=== PATIENT | male | born 1960 | race Caucasian/White ===

== ENCOUNTER 2020-03-19 16:48 | Inpatient (IN) | payer MEDICAID, SELFPAY ==
[2020-03-19] VITALS (8 sets, daily range): BP systolic 99–149; BP diastolic 58–84; PULSE 71–97; RESP 11–20; TEMP 36.9–37.7; O2SAT 97–99; BMI 22.1
--- NOTE | 2020-03-19 17:05 | PC.NURSE ---
dr son at bedside, this rn chaperoned rectal exam, no active bleeding from the rectum at this time. pt tolerated the procedure well skin slightly pale, respirations even and unlabored, ns on the monitor
--- NOTE | 2020-03-19 17:17 | ED_ITS ---
HPI - General Adult General Chief complaint: General Medical Stated complaint: hemorrhoids Time Seen by Provider: 03/19/20 16:55 Source: patient Mode of arrival: ambulatory Limitations: no limitations History of Present Illness HPI narrative: Patient comes to the emergency room complaining of rectal bleeding. Patient states he has been bleeding for about 3 weeks per rectum. Patient states he has no rectal pain, no abdominal pain, no vomiting blood. Patient states he has history of hemorrhoids that required surgery. Patient states he came because he has history of bleeding significantly to the point that he needs blood transfusion. Patient states that for the last week he has been using adult diapers especially at nights because at that time the rectal bleeding is more diffuse. Patient noticed that in the last 2 days he has been feeling mildly short of breath with exertion. Of note, patient was admitted in 2017 for similar issue with rectal bleeding. Patient had a colonoscopy done which showed venous abnormalities in varices. Patient did not require surgery at that time. Patient states in the last 3 years he has been intermittently bleeding but it usually self resolves, however this time it has been 3 weeks and the bleeding keeps getting worse. Patient denies any diarrhea. Patient has h istory of alcohol abuse. Patient states that he was sober for 4 years, however due to social issues, he has been drinking occasionally beer for the last 4 months. Patient states his last drink was yesterday. Patient denies being on blood thinners MD complaint: Rectal bleeding Related Data Home Medications Medication Instructions Recorded Confirmed No Known Home Meds 03/19/20 03/19/20 Allergies Allergy/AdvReac Type Severity Reaction Status Date / Time No Known Allergies Allergy Verified 03/19/20 19:39 [No Known Allergies*] Review of Systems Review of Systems: Constitutional : No Weight loss, No Fever, No Chills, No Night Sweats, No Fatigue, No Malaise ENT/Mouth : No Hearing loss, No Ear Pain, No Nasal Congestion, No Sinus Pain, No Hoarseness, No sore throat, No Rhinorrhea, No Swallowing Difficulty Eyes: No Eye Pain, No Swelling, No Redness, No Foreign Body, No Discharge, No Vision Changes Cardiovascular : No Chest Pain, No SOB, No Dyspnea on Exertion, No Orthopnea, No Edema, No Palpitations Respiratory : No Cough, No Sputum, No Wheezing, No Smoke Exposure, recently noticed dyspnea with exertion Gastrointestinal : No Nausea, No Vomiting, No Diarrhea, No Constipation, No abdominal Pain, complaining of rectal bleeding Genitourinary : no irregular bleeding, No Dysuria, No Urinary Frequency, No Hematuria, No Urinary Incontinence, No Urgency, No Flank Pain, No Urinary Flow Changes, No Hesitancy Musculoskeletal : No joint pain, No Myalgias, No Joint Swelling Skin : No Skin Lesions, No rash Neuro : No Weakness, No Numbness, No Paresthesias, No Loss of Consciousness, No Dizziness, No Headache Psych : No Anxiety/Panic, No Depression, No SI/HI/AH/VH, No Social Issues, Heme/Lymph: No Bruising, No Bleeding,No Lymphadenopathy Endocrine : No Polyuria, No Polydipsia, No Temperature Intolerance [facility] Past Medical History Medical History (Updated 03/19/20 @ 19:51 by Qian De Los Santos MD) Acute hemorrhoid Alcohol abuse GI bleed Surgical History (Updated 03/19/20 @ 17:22 by Qian De Los Santos MD) H/O hemorrhoidectomy Hx of hernia repair Hx of total knee replacement Social History Social History Alcohol intake: current Alcohol intake frequency: 3 or more drinks per day Alcohol type: beer Smoking Status: Never smoker Use of substances other than those prescribed or required for medical reasons: Yes Substance Use Type: Marijuana Substance Use Frequency: Daily Advance Directives: No Advance Directives Information Provided: Yes Physical Exam Vital Signs: Vital Signs: Last Vital Signs Temp 98.7 F 03/19/20 19:37 Pulse 81 03/19/20 19:37 Resp 18 03/19/20 19:37 BP 118/67 03/19/20 19:37 Pulse Ox 97 03/19/20 19:37 Body Mass Index 22.1 Appearance: Alert. Oriented X3. No acute distress. Eyes: Pupils equal, round and reactive to light. ENT: Pharynx normal. Neck: Normal inspection. Neck supple. No lymph nodes noted. No crepitus CVS: Normal heart rate and rhythm. Pulses normal. Normal S1 and S2 Respiratory: No respiratory distress. Breath sounds normal. No Wheezing. No rales Abdomen: Soft and nontender. No rigidity. No distention. good BS x4, no obvious external hemorrhoids, questionable internal hemorrhoids, bright red blood on digital rectal exam Skin: Skin warm and dry. Normal skin color. Normal skin turgor. Extremities: No lower extremity edema. No lower extremity edema. No Lacerations. No Rash Neuro: Oriented X 3. No motor deficit. No sensory deficit. Moving all extermi ties. No slurred speech. Course Course Course Narrative: Patient remains stable, I discussed the patient with the hospitalist, given that the patient has a hemoglobin of 8 point and is symptomatic will go ahead and transfuse him with 1 unit of blood initially. Otherwise, patient is stable, at this time patient does not have active bleeding. Plan is for the patient to get admitted, tomorrow surgery and GI will be consulted. Medical Decision Making Lab Data Result diagrams: 03/19/20 17:23 03/19/20 17:23 Labs: Lab Results 03/19/20 03/19/20 03/19/20 Range/Units 17:23 17:23 17:23 WBC 4.4 L (4.8-10.8) X10*3/uL RBC 2.46 L (4.60-5.80) X10*6/uL Hgb 8.0 L (14.0-18.0) g/dl Hct 24.2 L (42-52) % MCV 98.4 H (80-98) fL MCH 32.5 (27.0-33.0) pg MCHC 33.1 (31.0-36.0) g/dl RDW 12.6 (11.0-16.0) % Plt Count 250 (160-400) X10*3/uL MPV 9.1 L (9.4-12.4) fL Immature Gran % (Auto) 0.7 H (0.0-0.4) % Neut % (Auto) 58.6 (45-73) % Lymph % (Auto) 26.7 (20-40) % [place] % (Auto) 11.5 H (2-11) % Eos % (Auto) 1.8 (0-4) % Baso % (Auto) 0.7 (0-2) % Lymph # (Auto) 1.2 (1.2-4.9) X10*3/uL [place] # (Auto) 0.5 (0.1-1.2) X10*3/uL Eos # (Auto) 0.1 (0.0-0.4) X10*3/uL Baso # (Auto) 0.0 (0.0-0.2) X10*3/uL Abs Immat Gran (auto) 0.03 (0.00-0.03) X10*3/uL Absolute Neuts (auto) 2.6 (2.0-8.3) X10*3/uL Absolute Nucleated RBC 0.000 (0.0-0.012) X10*3/uL Nucleated RBC % (auto) 0.0 (0.0-0.2) /100WBC PT 10.3 L (10.8-13.0) SEC INR 0.9 (0.9-1.1) Sodium 136 (135-145) mmol/L Potassium 4.6 (3.3-5.1) mmol/l Chloride 104 (96-108) mmol/L Carbon Dioxide 23 (22-29) mmol/L Anion Gap 14 (12-20) BUN 16 (9-16) mg/dL Creatinine 0.82 (0.5-1.4) mg/dL Estim Creat Clear Calc 92.1 Estimated GFR > 60 Random Glucose 86 (60-115) mg/dL Calcium 8.4 (8.4-10.2) mg/dL Total Bilirubin 0.3 (0.0-1.0) mg/dL Direct Bilirubin < 0.2 (0.0-0.5) mg/dL AST 24 (5-37) U/L ALT 12 (0-40) U/L Alkaline Phosphatase 45 (39-117) U/L Total Protein 5.6 L (6.5-8.0) g/dL Albumin 3.6 (3.5-5.0) g/dL Ethyl Alcohol mg/dL Blood Type Antibody Screen Antibody Identification Crossmatch 03/19/20 03/19/20 Range/Units 17:23 18:09 WBC (4.8-10.8) X10*3/uL RBC (4.60-5.80) X10*6/uL Hgb (14.0-18.0) g/dl Hct (42-52) % MCV (80-98) fL MCH (27.0-33.0) pg MCHC (31.0-36.0) g/dl RDW (11.0-16.0) % Plt Count (160-400) X10*3/uL MPV (9.4-12.4) fL Immature Gran % (Auto) (0.0-0.4) % Neut % (Auto) (45-73) % Lymph % (Auto) (20-40) % [place] % (Auto) (2-11) % Eos % (Auto) (0-4) % Baso % (Auto) (0-2) % Lymph # (Auto) (1.2-4.9) X10*3/uL [place] # (Auto) (0.1-1.2) X10*3/uL Eos # (Auto) (0.0-0.4) X10*3/uL Baso # (Auto) (0.0-0.2) X10*3/uL Abs Immat Gran (auto) (0.00-0.03) X10*3/uL Absolute Neuts (auto) (2.0-8.3) X10*3/uL Absolute Nucleated RBC (0.0-0.012) X10*3/uL Nucleated RBC % (auto) (0.0-0.2) /100WBC PT (10.8-13.0) SEC INR (0.9-1.1) Sodium (135-145) mmol/L Potassium (3.3-5.1) mmol/l Chloride (96-108) mmol/L Carbon Dioxide (22-29) mmol/L Anion Gap (12-20) BUN (9-16) mg/dL Creatinine (0.5-1.4) mg/dL Estim Creat Clear Calc Estimated GFR Random Glucose (60-115) mg/dL Calcium (8.4-10.2) mg/dL Total Bilirubin (0.0-1.0) mg/dL Direct Bilirubin (0.0-0.5) mg/dL AST (5-37) U/L ALT (0-40) U/L Alkaline Phosphatase (39-117) U/L Total Protein (6.5-8.0) g/dL Albumin (3.5-5.0) g/dL Ethyl Alcohol 11 mg/dL Blood Type A Positive Antibody Screen POSITIVE Antibody Identification Anti-K Crossmatch See Detail Critical Care Time Critical Care Time Total Critical Care Time: 50 Discharge Plan Discharge Clinical Impression: GI bleed, Anemia Patient Disposition: Admitted As Inpatient Prescriptions: No Action No Known Home Meds RF: 0
[2020-03-19 17:31] LABS: Basophils Percent Auto 0.7 % (0-2); Eosinophils Absolute Auto 0.1 X10*3/uL (0.0-0.4); Eosinophils Percent Auto 1.8 % (0-4); Hematocrit 24.2 % (42-52); Imm Gran Abs Auto 0.03 X10*3/uL (0.00-0.03); Imm Gran Pct Auto 0.7 % (0.0-0.4); Lymphocytes Absolute Auto 1.2 X10*3/uL (1.2-4.9); Lymphocytes Percent Auto 26.7 % (20-40); MANUAL DIFF FLAG NO; Mean Corpuscular HGB Conc 33.1 g/dl (31.0-36.0); Mean Corpuscular Hemoglobin 32.5 pg (27.0-33.0); Mean Corpuscular Volume 98.4 fL (80-98); Mean Platelet Volume 9.1 fL (9.4-12.4); Monocytes Absolute Auto 0.5 X10*3/uL (0.1-1.2); Monocytes Percent Auto 11.5 % (2-11); Neutrophils Absolute Auto 2.6 X10*3/uL (2.0-8.3); Neutrophils Percent Auto 58.6 % (45-73); Platelet Count 250 X10*3/uL (160-400); Red Blood Count 2.46 X10*6/uL (4.60-5.80); Red Cell Distribution Width 12.6 % (11.0-16.0); White Blood Count 4.4 X10*3/uL (4.8-10.8)
[2020-03-19 17:37] LABS: INTERNATIONAL NORM RATIO 0.9 (0.9-1.1); Prothrombin Time 10.3 SEC (10.8-13.0)
[2020-03-19 17:52] LABS: Alanine Aminotransferase 12 U/L (0-40); Albumin Level 3.6 g/dL (3.5-5.0); Alkaline Phosphatase 45 U/L (39-117); Anion Gap 14 (12-20); Aspartate Amino Transferase 24 U/L (5-37); Bilirubin Direct < 0.2 mg/dL (0.0-0.5); Bilirubin Total 0.3 mg/dL (0.0-1.0); Blood Urea Nitrogen 16 mg/dL (9-16); Calcium 8.4 mg/dL (8.4-10.2); Carbon Dioxide 23 mmol/L (22-29); Chloride 104 mmol/L (96-108); Creatinine Clr Calc Pharmacy 92.1; Estimated Glomerular Filt Rate > 60; Glucose Random 86 mg/dL (60-115); Potassium 4.6 mmol/l (3.3-5.1); Sodium 136 mmol/L (135-145); Total Protein 5.6 g/dL (6.5-8.0)
[2020-03-19 17:55] LABS: Ethanol 11 mg/dL
--- NOTE | 2020-03-19 19:40 | PC.NURSE ---
Plan for admission to hospital. Hospitalist at bedside for evaluation. medication review completed. Patient is 2 receive 2 units of rbc's.
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
--- NOTE | 2020-03-19 19:55 | PC.NURSE ---
FLOOR CALLED TO GIVE REPORT BUT PATIENT
--- NOTE | 2020-03-19 20:10 | PC.NURSE ---
PATIENT BEING TRANSFUSED 1 UNIT A POSITVE RBC.
--- NOTE | 2020-03-19 21:21 | PC.NURSE ---
First unit of blood transfused and no reactions noted. Patient vss given.
[2020-03-20] VITALS (10 sets, daily range): BP systolic 97–126; BP diastolic 53–76; PULSE 56–90; RESP 16–19; TEMP 36.1–37.5; O2SAT 95–100
--- NOTE | 2020-03-20 | US_ITS ---
EXAMINATION: US SCROTUM CLINICAL INFORMATION: Testicular mass. COMPARISON: None TECHNIQUE: A sonogram of the scrotum was performed assessing castillo-scale appearance and color Doppler flow. Spectral Doppler analysis of the arterial and venous flow were performed in the testes bilaterally. FINDINGS: RIGHT: Right testicle measures 4.5 x 2.5 x 2.5 cm, volume 15 mL. No focal testicular parenchymal lesions are visualized. Spectral Doppler analysis of the arterial and venous flow is normal in the right testis. Right epididymal head is normal in size. The tail of the right epididymis is not well visualized. No right hydrocele or varicocele is seen. Right epididymal Doppler flow is LEFT: Left testicle measures 3.7 x 2.6 x 2.6 cm, volume 13 mL. No focal testicular parenchymal lesions are visualized. Spectral Doppler analysis of the arterial and venous flow is normal in the left testis. The left epididymis is not well visualized. There may be a small appendix testis. There is a large loculated left hydrocele. This contains multiple septations. No varicocele is seen. US/US scrotum IMPRESSION: Large loculated left hydrocele. The left epididymis and tail of the right epididymis are not well visualized. Normal-appearing testicles.
[2020-03-20 00:05] LABS: Glucose Urine UA NEG (NEG); Leukocyte Esterase Urine NEG (NEG); Nitrite Urine NEG (NEG); Specific Gravity - Urine 1.015 (1.005-1.025); Urine Blood NEG (NEG); Urine Ketones NEG (NEG); Urine Protein NEG (NEG-TRACE)
[2020-03-20 00:16] LABS: Appearance Urine CLEAR; Color Urine YELLOW
[2020-03-20] MEDS: 0.9 % Sodium Chloride 1,000 ML 100 ML IVCONT ×4 (00:42→23:50)
[2020-03-20 05:12] LABS: Basophils Percent Auto 0.6 % (0-2); Eosinophils Absolute Auto 0.1 X10*3/uL (0.0-0.4); Hemoglobin 8.5 g/dl (14.0-18.0); Lymphocytes Percent Auto 15.6 % (20-40); MANUAL DIFF FLAG SCAN; PLT CLUMP 1; SCAN SMEAR FLAG 1
[2020-03-20 05:14] LABS: Eosinophils Percent Auto 1.7 % (0-4); Hematocrit 26.3 % (42-52); Imm Gran Abs Auto 0.01 X10*3/uL (0.00-0.03); Imm Gran Pct Auto 0.2 % (0.0-0.4); Lymphocytes Absolute Auto 0.8 X10*3/uL (1.2-4.9); Mean Corpuscular HGB Conc 32.3 g/dl (31.0-36.0); Mean Corpuscular Hemoglobin 31.4 pg (27.0-33.0); Mean Platelet Volume 9.1 fL (9.4-12.4); Monocytes Absolute Auto 0.4 X10*3/uL (0.1-1.2); Monocytes Percent Auto 8.5 % (2-11); Neutrophils Absolute Auto 3.5 X10*3/uL (2.0-8.3); Neutrophils Percent Auto 73.4 % (45-73); Platelet Count 211 X10*3/uL (160-400); Red Blood Count 2.71 X10*6/uL (4.60-5.80); Red Cell Distribution Width 13.3 % (11.0-16.0); White Blood Count 4.8 X10*3/uL (4.8-10.8)
[2020-03-20 05:41] LABS: Anion Gap 8 (12-20); Blood Urea Nitrogen 16 mg/dL (9-16); Calcium 7.8 mg/dL (8.4-10.2); Carbon Dioxide 28 mmol/L (22-29); Chloride 106 mmol/L (96-108); Creatinine Clr Calc Pharmacy 103.5; Estimated Glomerular Filt Rate > 60; Glucose Random 92 mg/dL (60-115); Potassium 4.3 mmol/l (3.3-5.1); Sodium 138 mmol/L (135-145)
[2020-03-20 05:44] LABS: SLIDE REVIEW VERIFIED
--- NOTE | 2020-03-20 08:41 | P.CDIC_ITS ---
[facility] Concurrent Query Service Date: 03/20/20 Documentation Clarification: Please clarify if you are treating a proba ble/suspected/likely or confirmed: Acute blood loss anemia Please specify if known or other Provider Response: Acute Blood Loss Anemia PLEASE DO NOT DELETE/MODIFY EXISTING CONTENT Additional information is needed in order to code to the highest accuracy and appropriate Severity of Illness (SOI). Please clarify the information noted b elow in your progress notes and discharge summary. Risk Factors/Clinical Indicators/Treatments GI bleed, History of GI bleed in the past, now with shortness of breath, unable to move around without getting SOB w exertion and feeling weak. Bleeding most likely 2nd to his h/o rectosigmoid varices. Given his symptomatic anemia will give 1 unit PRBC. HGB 8.0 8.5 HCT 24.2 26.3 Follow H and H CDS: Francheska Khan CCS, [facility] Contact Number: [phone] Please Review the information above and exercise your independent professional judgment in responding to the query. If you concur, pleas document in the PROGRESS NOTES and DISCHARGE SUMMARY. If you do not agree with the query, please document in the query above. THIS QUERY IS PART OF THE PERMANENT MEDICAL RECORD
--- NOTE | 2020-03-20 09:48 | MHC.CM.PN ---
CM attempted to see pt this morning who is off unit for imaging. CM to revisit
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
--- NOTE | 2020-03-20 13:29 | P.PNIM_ITS ---
Subjective Subjective Date of Service: 03/20/20 Interval History: the patient was seen and evaluated this morning Laying in bed, feels comfortable Denies any fever, chills or shortness of breath reports having 2 bloody bowel motions overnight No reported other overnight events. Systemic review: No fever, chills But reports generalized weakness No chest pain, palpitation on exertion shortness of breath but no coughing No abdominal pain, nausea or vomiting No urinary symptoms No any rash or wounds Physical Exam Vital Signs: Vital Signs: Last Vital Signs Temp 98.0 F 03/20/20 10:58 Pulse 68 03/20/20 10:58 Resp 18 03/20/20 10:58 BP 110/68 03/20/20 10:58 Pulse Ox 98 03/20/20 10:58 Body Mass Index 22.1 Constitutional : Alert, oriented, not in distress Neck : Normal inspection, Supple Cardiovascular : RRR, S1 S2, no lower extremity edema Respiratory : Good bilateral air entry, no crackles, wheezes or rhonchi Gastrointestinal: soft, lax, Normal bowel sounds, Non tender Skin : Warm/Dry, No rash, large left-sided scrotal mass, not tender Neurological : Alert & oriented x3, No focal deficit Objective Data Current Medications Generic Name Dose Route Start Last Admin Trade Name Freq PRN Reason Stop Dose Admin Acetaminophen 650 mg 03/19/20 22:42 Acetaminophen 325 Mg Tablet PO Q6H PRN Pain, Mild (Pain Scale 1-3) Sodium Chloride 1,000 mls @ 100 mls/hr 03/19/20 22:42 03/20/20 13:26 Ns IVCONT 0 mls/hr .Q10H BON Infusion Ondansetron HCl 4 mg 03/19/20 22:42 Ondansetron Hcl 4 Mg/2 Ml Vial IVPUSH Q8H PRN Nausea and Vomiting Sodium Chloride 3 ml 03/20/20 00:00 03/20/20 08:28 0.9 % Sodium Chloride Flush 3 Ml Syringe IVFLUSH Not Given QSHIFT [facility] Labs CBC & Chem 7: 03/20/20 04:46 03/20/20 04:46 Assessment and Plan (1) GI bleed: Status: Acute (2) Anemia: Status: Acute (3) Mass of left testicle: Status: Acute (4) History of hemorrhoids: Status: Acute (5) Rectal varices: Status: Acute (6) Acute on chronic blood loss anemia: Status: Acute (7) Symptomatic anemia: Status: Acute Assessment and Plan: this is a 59-year-old male with past medical history as mentioned above who presents to the hospital with GI bleed. acute on chronic blood loss anemia Symptomatic anemia Secondary to GI bleed likely result of of rectosigmoid varices bleeding hemoglobin improved to 8.3 post transfusion To give another unit of blood GI bleed GI input appreciated, planned colonoscopy Monday Start diet for now Monitor H and H Left scrotal mass Ultrasound showing but seems to be calcified hydrocele pending consult urology History of rectal varices and hemorrhoids status post hemorrhoidectomy in his 20s last GI bleed due to rectosigmoid varices in 2017 DVT prophylaxis SCDs
--- NOTE | 2020-03-20 16:45 | PC.NURSE ---
1 unit PRBC completed. No s/sx of reaction. Denies CP, SOB. Lungs clear throughout. Pt refusing SCDs at this time.
[2020-03-20 18:29] LABS: Hematocrit 29.7 % (42-52); Hemoglobin 9.6 g/dl (14.0-18.0); Mean Corpuscular HGB Conc 32.3 g/dl (31.0-36.0); Mean Corpuscular Hemoglobin 31.3 pg (27.0-33.0); Mean Corpuscular Volume 96.7 fL (80-98); Mean Platelet Volume 9.5 fL (9.4-12.4); Platelet Count 194 X10*3/uL (160-400); Red Blood Count 3.07 X10*6/uL (4.60-5.80); Red Cell Distribution Width 13.9 % (11.0-16.0); White Blood Count 3.6 X10*3/uL (4.8-10.8)
[2020-03-20] MEDS: Gabapentin 600 MG TABLET PO (20:50)
[2020-03-21 03:32] VITALS: BP 113/80; PULSE 64; RESP 18; TEMP 36.6; O2SAT 100
[2020-03-21 07:04] LABS: Hematocrit 28.7 % (42-52); Hemoglobin 9.5 g/dl (14.0-18.0); Mean Corpuscular HGB Conc 33.1 g/dl (31.0-36.0); Mean Corpuscular Hemoglobin 31.9 pg (27.0-33.0); Mean Corpuscular Volume 96.3 fL (80-98); Mean Platelet Volume 9.5 fL (9.4-12.4); Platelet Count 178 X10*3/uL (160-400); Red Blood Count 2.98 X10*6/uL (4.60-5.80); Red Cell Distribution Width 14.1 % (11.0-16.0); White Blood Count 3.5 X10*3/uL (4.8-10.8)
[2020-03-21 07:12] VITALS: BP 116/74; PULSE 60; RESP 18; TEMP 37; O2SAT 99
[2020-03-21 07:23] LABS: Anion Gap 7 (12-20); Blood Urea Nitrogen 16 mg/dL (9-16); Calcium 7.8 mg/dL (8.4-10.2); Carbon Dioxide 26 mmol/L (22-29); Chloride 110 mmol/L (96-108); Creatinine Clr Calc Pharmacy 111.1; Estimated Glomerular Filt Rate > 60; Glucose Random 96 mg/dL (60-115); Potassium 4.4 mmol/l (3.3-5.1); Sodium 139 mmol/L (135-145)
[2020-03-21] MEDS: Gabapentin 600 MG TABLET PO ×3 (07:52→20:53)
[2020-03-21] MEDS: 0.9 % Sodium Chloride 1,000 ML 100 ML IVCONT ×2 (10:01→20:53)
[2020-03-21 11:08] VITALS: BP 122/75; PULSE 69; RESP 18; TEMP 36.9; O2SAT 98
--- NOTE | 2020-03-21 12:57 | P.PNIM_ITS ---
Subjective Subjective Date of Service: 03/21/20 Interval History: the patient was seen and evaluated this morning Laying in bed, feels comfortable Denies any fever, chills or shortness of breath reports having bloody bowel motions overnight No reported other overnight events. Systemic review: No fever, chills But reports generalized weakness No chest pain, palpitation on exertion shortness of breath but no coughing No abdominal pain, nausea or vomiting But reports bloody bowel motions No urinary symptoms No any rash or wounds Physical Exam Vital Signs: Vital Signs: Last Vital Signs Temp 98.4 F 03/21/20 11:08 Pulse 69 03/21/20 11:08 Resp 18 03/21/20 11:08 BP 122/75 03/21/20 11:08 Pulse Ox 98 03/21/20 11:08 Body Mass Index 22.1 Constitutional : Alert, oriented, not in distress Neck : Normal inspection, Supple Cardiovascular : RRR, S1 S2, no lower extremity edema Respiratory : Good bilateral air entry, no crackles, wheezes or rhonchi Gastrointestinal: soft, lax, Normal bowel sounds, Non tender Skin : Warm/Dry, No rash Neurological : Alert & oriented x3, No focal deficit Objective Data Current Medications Generic Name Dose Route Start Last Admin Trade Name Freq PRN Reason Stop Dose Admin Acetaminophen 650 mg 03/19/20 22:42 Acetaminophen 325 Mg Tablet PO Q6H PRN Pain, Mild (Pain Scale 1-3) Gabapentin 600 mg 03/20/20 21:00 03/21/20 07:52 Gabapentin 600 Mg Tablet PO 600 mg TID BON Administration Sodium Chloride 1,000 mls @ 100 mls/hr 03/19/20 22:42 03/21/20 10:01 Ns IVCONT 100 mls/hr .Q10H BON Administration Ondansetron HCl 4 mg 03/19/20 22:42 Ondansetron Hcl 4 Mg/2 Ml Vial IVPUSH Q8H PRN Nausea and Vomiting Sodium Chloride 3 ml 03/20/20 00:00 03/21/20 07:52 0.9 % Sodium Chloride Flush 3 Ml Syringe IVFLUSH Not Given QSHIFT [facility] Labs CBC & Chem 7: 03/21/20 06:27 03/21/20 06:27 Assessment and Plan (1) GI bleed: Status: Acute (2) Anemia: Status: Acute (3) Mass of left testicle: Status: Acute (4) History of hemorrhoids: Status: Acute (5) Rectal varices: Status: Acute (6) Acute on chronic blood loss anemia: Status: Acute (7) Symptomatic anemia: Status: Acute Assessment and Plan: this is a 59-year-old male with past medical history as mentioned above who presents to the hospital with GI bleed. acute on chronic blood loss anemia Symptomatic anemia Secondary to GI bleed likely result of of rectosigmoid varices bleeding Plan for colonoscopy Monday morning Change diet to clear liquids tomorrow morning To start bowel preparation tomorrow GI bleed GI input appreciated, planned colonoscopy Monday hemoglobin stable around 9.2 after 2 units transfusion Start diet for now Monitor H and H Left scrotal mass Ultrasound showing but seems to be loculated hydrocele pending consult urology History of rectal varices and hemorrhoids status post hemorrhoidectomy in his 20s last GI bleed due to rectosigmoid vari americo in 2017 DVT prophylaxis SCDs
--- NOTE | 2020-03-21 14:20 | P.CNUR_ITS ---
History of Present Illness Consult details Consult date: 03/21/20 Narrative: 59-year-old male. Admitted with history of GI bleed and rectosigmoid varices. Prior known high alcohol consumption. Currently at lower level. Has been living in [facility] drinking every 2 or 3 days. This episode started in early February with progressive worsening bloody watery bowel motions. On admission noted to have enlarged left testicle. Ultrasound shows complex hydrocele Discussed with patient He would like intervention We discussed coming to the office for evaluation and he could be added for surgery. At this point in time he is still being treated for his anemia and bleeding varices. Review of Systems Review of Systems: Yes all other systems are reviewed and are negative PMFSH Past Medical History Medical History (Updated 03/21/20 @ 14:20 by Filipe Mcclendon MD) Acute hemorrhoid Alcohol abuse GI bleed Surgical History Surgical History (Updated 03/19/20 @ 17:22 by Qian De Los Santos MD) H/O hemorrhoidectomy Hx of hernia repair Hx of total knee replacement Social History Social History Household Members: None Housing: Homeless Housing Other:: lived in a [facility], now homeless at this time Do you presently have visiting nurse or other home services: No Alcohol intake: current Alcohol intake frequency: 3 or more drinks per day Alcohol type: beer Smoking Status: Never smoker Use of substances other than those prescribed or required for medical reasons: No Substance Use Type: Marijuana Substance Use Frequency: Daily Currently Displaying Signs/Symptoms of Drug Intoxication Withdrawal: No Have you been hit, kicked, punched, or otherwise hurt by someone within the past year? If so, by whom?: No Do you feel safe in your current relationship?: No Current Relationship Is there a partner from a previous relationship who is making you feel unsafe now?: No Are you made to feel afraid or neglected: No Advance Directives: No Advance Directives Information Provided: Yes Do you have thoughts of harming others: None Do you have a plan to hurt others: No Plan Recently lost weight without trying: No Meds Allergies Allergy/AdvReac Type Severity Reaction Status Date / Time No Known Allergies Allergy Verified 03/19/20 19:39 [No Known Allergies*] Home Medications Medication Instructions Recorded Confirmed Type gabapentin 600 mg PO TID 03/20/20 03/20/20 History naproxen sodium 550 mg PO BID 03/20/20 03/20/20 History Physical Exam Vital Signs: Vital Signs: Last Vital Signs Temp 98.4 F 03/21/20 11:08 Pulse 69 03/21/20 11:08 Resp 18 03/21/20 11:08 BP 122/75 03/21/20 11:08 Pulse Ox 98 03/21/20 11:08 Body Mass Index 22.1 Const: General: cooperative, healthy appearing, comfortable and no acute distress Nutritional Appearance: average body habitus Orientation/consciousness: oriented to person, oriented to place and oriented to time Eyes: General: appearance normal, both eyes and all related structures Chest: Chest palpation & inspection: normal inspection of the chest Resp: Effort & Inspection: normal respiratory effort Cardio: Rate: regular rate GI: Inspection: Yes normal to inspection : Penis: normal penis Meatus: meatus normal Scrotum: Hydrocele present on the left Skin: Hair: normal Neuro: General: oriented to person, oriented to place and oriented to time Extrem: General: Yes normal to inspection Results Labs Result diagrams: 03/21/20 06:27 03/21/20 06:27 Labs: Abnormal lab results 03/19/20 03/20/20 03/21/20 Range/Units 18:09 17:33 06:27 WBC 3.6 L 3.5 L (4.8-10.8) X10*3/uL RBC 3.07 L 2.98 L (4.60-5.80) X10*6/uL Hgb 9.6 L 9.5 L (14.0-18.0) g/dl Hct 29.7 L 28.7 L (42-52) % Chloride (96-108) mmol/L Anion Gap (12-20) Calcium (8.4-10.2) mg/dL Crossmatch See Detail Crossmatch (AHG) See Detail 03/21/20 Range/Units 06:27 WBC (4.8-10.8) X10*3/uL RBC (4.60-5.80) X10*6/uL Hgb (14.0-18.0) g/dl Hct (42-52) % Chloride 110 H (96-108) mmol/L Anion Gap 7 L (12-20) Calcium 7.8 L (8.4-10.2) mg/dL Crossmatch Crossmatch (AHG) Short CBC 03/20/20 03/21/20 Range/Units 17:33 06:27 WBC 3.6 L 3.5 L (4.8-10.8) X10*3/uL Hgb 9.6 L 9.5 L (14.0-18.0) g/dl Hct 29.7 L 28.7 L (42-52) % Plt Count 194 178 (160-400) X10*3/uL BMP 03/21/20 06:27 Sodium 139 Potassium 4.4 Chloride 110 H Carbon Dioxide 26 BUN 16 Creatinine 0.68 Calcium 7.8 L Urine 03/19/20 Range/Units 23:27 Urine Color YELLOW Urine Appearance CLEAR Urine pH 7.0 (5.0-8.0) Ur Specific [place] 1.015 (1.005-1.025) Urine Protein NEG (NEG-TRACE) MG/DL Urine Glucose (UA) NEG (NEG) MG/DL All other labs normal. Assessment and Plan (1) Hydrocele in adult: Status: Acute Left large complex hydrocele If still in hospital Monday could be added on for hydrocelectomy
--- NOTE | 2020-03-21 15:30 | PM.GIPN ---
Subjective Subjective Date of Service: 03/21/20 Interval History: tolerating diet still with blood in bms Physical Exam Vital Signs: Vital Signs: Last Vital Signs Temp 98.4 F 03/21/20 11:08 Pulse 69 03/21/20 11:08 Resp 18 03/21/20 11:08 BP 122/75 03/21/20 11:08 Pulse Ox 98 03/21/20 11:08 Body Mass Index 22.1 Const: General: cooperative Resp: Other: lungs clear Cardio: Other: normal s1 s2 GI: Other: soft, nontender bowel sounds normal Extrem: Other: without edema Objective Data Labs CBC & Chem 7: 03/21/20 06:27 03/21/20 06:27 Progress Note: A&P Assessment and plan (1) GI bleed: Status: Acute Assessment and Plan: [id number] monitor hct Time Spent With Patient Time: Total time spent is greater than 50% in coordination of care (as documented) at patient's floor/unit and/or counseling patient: Time with patient: 15 - 24 minutes
--- NOTE | 2020-03-21 15:55 | MHC.CM.PN ---
CM MET WITH PT WHO REPORTS HE HAS BEEN LIVING [place] [address] OF [place] FOR THE PAST TWO MONTHS. PT REPORTS HE HAS A RV BUT ALL OF THE CAMP GROUNDS ARE CLOSED. HE REPORTS HE HAS BEEN UNABLE TO WORK SINCE A KNEE REPLACEMENT THAT HE FEELS WAS BOTCHED. HE REPORTS HIS PCP IS WORKING ON GETTING A SECOND SURGERY AUTHORIZED TO CORRECT IT. 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 PT REPORTS HE HAS NOT DRANK IN 4 YEARS AND FEELS STAYING BUSY IS GARDINER TO HIS RECOVERY. PT REPORTS SOME CONCERNS ABOUT RETURNING TO THE STREET UPON DISCHARGE. CM WILL CHECK HIS INSURANCE FOR GROUP HOME BENEFITS. CURRENTLY DC PLAN IS TBD PENDING PTS BENEFITS ARE CARE PLAN
[2020-03-21 16:00] VITALS: BP 115/73; PULSE 62; RESP 18; TEMP 36.9; O2SAT 100
--- NOTE | 2020-03-21 18:02 | PC.NURSE ---
Pt a&o x4, able to make needs known. Pt has some c.o pain in his rectum but refuses pain medication. Pt aware of plan for colonoscopy for 03/23/20.
[2020-03-21 19:03] VITALS: BP 140/80; PULSE 66; RESP 16; TEMP 36.8; O2SAT 99
[2020-03-21 23:21] VITALS: BP 102/66; PULSE 60; RESP 18; TEMP 36.6; O2SAT 98
[2020-03-22 04:00] VITALS: BP 101/56; PULSE 52; RESP 18; TEMP 36.7; O2SAT 100
[2020-03-22] MEDS: 0.9 % Sodium Chloride 1,000 ML 100 ML IVCONT ×2 (05:28→15:37)
[2020-03-22 07:13] LABS: Hematocrit 29.4 % (42-52); Hemoglobin 9.4 g/dl (14.0-18.0); Mean Corpuscular Hemoglobin 30.7 pg (27.0-33.0); Mean Corpuscular Volume 96.1 fL (80-98); Mean Platelet Volume 9.5 fL (9.4-12.4); Platelet Count 182 X10*3/uL (160-400); Red Blood Count 3.06 X10*6/uL (4.60-5.80); Red Cell Distribution Width 13.6 % (11.0-16.0); White Blood Count 4.4 X10*3/uL (4.8-10.8)
[2020-03-22 07:50] LABS: Anion Gap 8 (12-20); Blood Urea Nitrogen 13 mg/dL (9-16); Calcium 7.7 mg/dL (8.4-10.2); Carbon Dioxide 26 mmol/L (22-29); Chloride 110 mmol/L (96-108); Creatinine Clr Calc Pharmacy 116.3; Estimated Glomerular Filt Rate > 60; Glucose Random 94 mg/dL (60-115); Potassium 4.3 mmol/l (3.3-5.1); Sodium 140 mmol/L (135-145)
[2020-03-22 08:00] VITALS: BP 111/73; PULSE 66; RESP 20; TEMP 36.6; O2SAT 97
[2020-03-22] MEDS: Gabapentin 600 MG TABLET PO ×3 (08:38→20:51)
[2020-03-22 12:00] VITALS: BP 105/76; PULSE 59; RESP 20; TEMP 36.9; O2SAT 99
--- NOTE | 2020-03-22 12:36 | PM.GIPN ---
Subjective Subjective Date of Service: 03/22/20 Interval History: reports rectal bleeding no abd pain Physical Exam Vital Signs: Vital Signs: Last Vital Signs Temp 98.5 F 03/22/20 12:00 Pulse 59 03/22/20 12:00 Resp 20 03/22/20 12:00 BP 105/76 03/22/20 12:00 Pulse Ox 99 03/22/20 12:00 Body Mass Index 22.1 Const: General: cooperative and comfortable Resp: Auscultation: clear to auscultation bilaterally Cardio: Rate: regular rate Rhythm: regular rhythm Heart sounds: S1 normal heart sound present and S2 normal heart sound present Extrem: General: Yes no clubbing, cyanosis or edema Objective Data Labs CBC & Chem 7: 03/22/20 06:40 03/22/20 06:40 Progress Note: A&P Assessment and plan (1) GI bleed: Status: Acute Assessment and Plan: rectal bleeding is stable bowel prep today colonoscopy tomorrow Time Spent With Patient Time: Total time spent is greater than 50% in coordination of care (as documented) at patient's floor/unit and/or counseling patient: Time with patient: less than 15 minutes
--- NOTE | 2020-03-22 12:55 | HO.PM.IMPN ---
Subjective Subjective Date of Service: 03/22/20 Interval History: the patient was seen and evaluated this morning Laying in bed, feels comfortable Denies any fever, chills or shortness of breath reports having bloody bowel motions overnight No reported other overnight events. Systemic review: No fever, chills But reports generalized weakness No chest pain, palpitation on exertion shortness of breath but no coughing No abdominal pain, nausea or vomiting But reports bloody bowel motions No urinary symptoms No any rash or wounds Physical Exam Vital Signs: Vital Signs: Last Vital Signs Temp 98.5 F 03/22/20 12:00 Pulse 59 03/22/20 12:00 Resp 20 03/22/20 12:00 BP 105/76 03/22/20 12:00 Pulse Ox 99 03/22/20 12:00 Body Mass Index 22.1 Constitutional : Alert, oriented, not in distress Neck : Normal inspection, Supple Cardiovascular : RRR, S1 S2, no lower extremity edema Respiratory : Good bilateral air entry, no crackles, wheezes or rhonchi Gastrointestinal: soft, lax, Normal bowel sounds, Non tender Skin : Warm/Dry, No rash Neurological : Alert & oriented x3, No focal deficit Objective Data Current Medications Generic Name Dose Route Start Last Admin Trade Name Freq PRN Reason Stop Dose Admin Acetaminophen 650 mg 03/19/20 22:42 Acetaminophen 325 Mg Tablet PO Q6H PRN Pain, Mild (Pain Scale 1-3) Gabapentin 600 mg 03/20/20 21:00 03/22/20 08:38 Gabapentin 600 Mg Tablet PO 600 mg TID BON Administration Sodium Chloride 1,000 mls @ 100 mls/hr 03/19/20 22:42 03/22/20 05:28 Ns IVCONT 100 mls/hr .Q10H BON Administration Ondansetron HCl 4 mg 03/19/20 22:42 Ondansetron Hcl 4 Mg/2 Ml Vial IVPUSH Q8H PRN Nausea and Vomiting Sodium Chloride 3 ml 03/20/20 00:00 03/22/20 08:36 0.9 % Sodium Chloride Flush 3 Ml Syringe IVFLUSH Not Given QSHIFT [facility] Labs CBC & Chem 7: 03/22/20 06:40 03/22/20 06:40 Assessment and Plan (1) GI bleed: Status: Acute (2) Anemia: Status: Acute (3) Mass of left testicle: Status: Acute (4) History of hemorrhoids: Status: Acute (5) Rectal varices: Status: Acute (6) Acute on chronic blood loss anemia: Status: Acute (7) Symptomatic anemia: Status: Acute Assessment and Plan: this is a 59-year-old male with past medical history as mentioned above who presents to the hospital with GI bleed. acute on chronic blood loss anemia Symptomatic anemia Secondary to GI bleed likely result of of rectosigmoid varices bleeding Plan for colonoscopy Tomorrow Start bowel preparation today Change diet to clear liquids tomorrow morning NPO post midnight GI bleed GI input appreciated, planned colonoscopy Monday hemoglobin stable around 9.3 after 2 units transfusion Start diet for now Monitor H and H Left scrotal mass Ultrasound showing but seems to be loculated hydrocele Urology input appreciated, consider surgery during the hospital stay History of rectal varices and hemorrhoids status post hemorrhoidectomy in his 20s last GI bleed due to rectosigmoid varices in 2017 DVT prophylaxis SCDs
[2020-03-22] MEDS: PEG 3350/Na Sulf,Bicarb,Cl/KCL 4,000 ML SOLN.RECON 4000 ML PO (14:55)
[2020-03-22 14:59] VITALS: BP 106/74; PULSE 56; RESP 20; TEMP 36.6; O2SAT 99
[2020-03-22] MEDS: Acetaminophen 325 MG TABLET 650 MG PO (15:42)
--- NOTE | 2020-03-22 18:08 | PC.NURSE ---
Pt was angry in the morning due to mix up in computer and tray being sent up late. Told pt that it wasn't the kichen's fault and that it was a mix up in the computer. Pt calmed down shortly after. Pt began bowel prep for colonoscopy 03/23/20. Bedside commode brought into room. Pt still have some stool in BM, pt knows what to look for when doing bowel prep since he has done it before. Told pt to notify nurse of progression of bowel prep.
[2020-03-22] MEDS: ondansetron HCL 4 MG/2 ML VIAL IVPUSH (19:24)
[2020-03-22 20:00] VITALS: BP 107/75; PULSE 57; RESP 16; TEMP 36.7; O2SAT 99
[2020-03-22 23:10] VITALS: BP 111/72; PULSE 59; RESP 16; TEMP 36.6; O2SAT 99
[2020-03-23] VITALS (8 sets, daily range): BP systolic 99–135; BP diastolic 55–90; PULSE 55–89; RESP 14–20; TEMP 36.5–36.8; O2SAT 93–100
[2020-03-23] MEDS: 0.9 % Sodium Chloride Flush 3 ML SYRINGE IVFLUSH ×3 (01:18→16:25)
[2020-03-23 06:28] LABS: Hematocrit 28.6 % (42-52); Hemoglobin 9.2 g/dl (14.0-18.0); Mean Corpuscular HGB Conc 32.2 g/dl (31.0-36.0); Mean Corpuscular Hemoglobin 31.1 pg (27.0-33.0); Mean Corpuscular Volume 96.6 fL (80-98); Mean Platelet Volume 9.4 fL (9.4-12.4); Platelet Count 201 X10*3/uL (160-400); Red Blood Count 2.96 X10*6/uL (4.60-5.80); Red Cell Distribution Width 13.7 % (11.0-16.0); White Blood Count 3.8 X10*3/uL (4.8-10.8)
[2020-03-23] MEDS: Gabapentin 600 MG TABLET PO ×3 (07:57→19:30)
[2020-03-23] MEDS: Acetaminophen 325 MG TABLET 650 MG PO ×2 (07:58→19:29)
--- NOTE | 2020-03-23 09:36 | MHC.SHP ---
Pre-Procedural Eval Section A The patient is an INPATIENT: Yes The History & Physical has been completed within 30 days and I have reviewed it.: Yes Section B Chief Complaint: GI BLeed, symptomatic anemia Allergies: Allergies Allergy/AdvReac Type Severity Reaction Status Date / Time No Known Allergies Allergy Verified 03/19/20 19:39 [No Known Allergies*] Plan Patient has been examined and remains a candidate for the planned procedure
[2020-03-23] MEDS: Lactated Ringers 1,000 ML 50 ML IVCONT ×2 (12:50→18:03)
--- NOTE | 2020-03-23 13:09 | PC.NURSE ---
NAV FERGUSON RN REGARDING PATIENTS OUTDATED BLOOD BANK BAND. NEW TYPE AND SCREEN ORDER PUT INTO COMPUTER. CALLED LAB FOR A REDRAW.
--- NOTE | 2020-03-23 13:21 | PC.NURSE ---
patient being drawn for type and screen.
--- NOTE | 2020-03-23 13:27 | PC.NURSE ---
rebanded with new type and screen to right wrist.
--- NOTE | 2020-03-23 13:42 | HO.ANESPROP2 ---
HPI - Anesthesia Eval Consult details Narrative: p/f colonoscopy d/t rectal bleeding [facility] Past Medical History Medical History Acute hemorrhoid Alcohol abuse GI bleed Surgical History Surgical History H/O hemorrhoidectomy Hx of hernia repair Hx of total knee replacement Social History Social History Household Members: None Housing: Homeless Housing Other:: lived in a [place] trailer, now homeless at this time Do you presently have visiting nurse or other home services: No Alcohol intake: current Alcohol intake frequency: 3 or more drinks per day Alcohol type: beer Smoking Status: Never smoker Use of substances other than those prescribed or required for medical reasons: Yes Substance Use Type: Marijuana Substance Use Frequency: Daily Currently Displaying Signs/Symptoms of Drug Intoxication Withdrawal: No Have you been hit, kicked, punched, or otherwise hurt by someone within the past year? If so, by whom?: No Do you feel safe in your current relationship?: No Current Relationship Is there a partner from a previous relationship who is making you feel unsafe now?: No Are you made to feel afraid or neglected: No Advance Directives: No Advance Directives Information Provided: Yes Do you have thoughts of harming others: None Do you have a plan to hurt others: No Plan Recently lost weight without trying: No service: No Current occupational status: disabled Meds Allergies Allergy/AdvReac Type Severity Reaction Status Date / Time No Known Allergies Allergy Verified 03/19/20 19:39 [No Known Allergies*] Home Medications Medication Instructions Recorded Confirmed Type gabapentin 600 mg PO TID 03/20/20 03/20/20 History naproxen sodium 550 mg PO BID 03/20/20 03/20/20 History Exam Exam Date and Time: March 23, 2020 1342 Height,Weight and Vital Signs: Height 5 ft 9 in Weight 68.039 kg Last Vital Signs Temp 98.1 F 03/23/20 12:42 Pulse 62 03/23/20 12:42 Resp 16 03/23/20 12:42 BP 135/89 03/23/20 12:42 Pulse Ox 99 03/23/20 12:42 Pertinent Lab Results Pertinent Lab Results: Laboratory Tests 03/19/20 03/19/20 03/19/20 17:23 17:23 17:23 WBC 4.4 L RBC 2.46 L Hgb 8.0 L Hct 24.2 L MCV 98.4 H MCH 32.5 MCHC 33.1 RDW 12.6 Plt Count 250 MPV 9.1 L Immature Gran % (Auto) 0.7 H Neut % (Auto) 58.6 Lymph % (Auto) 26.7 [place] % (Auto) 11.5 H Eos % (Auto) 1.8 Baso % (Auto) 0.7 Lymph # (Auto) 1.2 [place] # (Auto) 0.5 Eos # (Auto) 0.1 Baso # (Auto) 0.0 Abs Immat Gran (auto) 0.03 Absolute Neuts (auto) 2.6 Absolute Nucleated RBC 0.000 Nucleated RBC % (auto) 0.0 Smear Tech's Comments PT 10.3 L INR 0.9 Sodium 136 Potassium 4.6 Chloride 104 Carbon Dioxide 23 Anion Gap 14 BUN 16 Creatinine 0.82 Estim Creat Clear Calc 92.1 Estimated GFR > 60 Random Glucose 86 Calcium 8.4 Total Bilirubin 0.3 Direct Bilirubin < 0.2 AST 24 ALT 12 Alkaline Phosphatase 45 Total Protein 5.6 L Albumin 3.6 Urine Color Urine Appearance Urine pH Ur Specific [place] Urine Protein Urine Glucose (UA) Urine Ketones Urine Blood Urine Nitrite Ur Leukocyte Esterase Ethyl Alcohol Blood Type Antibody Screen Antibody Identification Antigen Identification Crossmatch Crossmatch ([facility]) 03/19/20 03/19/20 03/19/20 17:23 18:09 23:27 WBC RBC Hgb Hct MCV MCH MCHC RDW Plt Count MPV Immature Gran % (Auto) Neut % (Auto) Lymph % (Auto) [place] % (Auto) Eos % (Auto) Baso % (Auto) Lymph # (Auto) [place] # (Auto) Eos # (Auto) Baso # (Auto) Abs Immat Gran (auto) Absolute Neuts (auto) Absolute Nucleated RBC Nucleated RBC % (auto) Smear Tech's Comments PT INR Sodium Potassium Chloride Carbon Dioxide Anion Gap BUN Creatinine Estim Creat Clear Calc Estimated GFR Random Glucose Calcium Total Bilirubin Direct Bilirubin AST ALT Alkaline Phosphatase Total Protein Albumin Urine Color YELLOW Urine Appearance CLEAR Urine pH 7.0 Ur Specific [place] 1.015 Urine Protein NEG Urine Glucose (UA) NEG Urine Ketones NEG Urine Blood NEG Urine Nitrite NEG Ur Leukocyte Esterase NEG Ethyl Alcohol 11 Blood Type A Positive Antibody Screen POSITIVE Antibody Identification Anti-K Antigen Identification K Antigen - NEGATIVE Crossmatch See Detail Crossmatch ([facility]) See Detail 03/20/20 03/20/20 03/20/20 04:46 04:46 17:33 WBC 4.8 3.6 L RBC 2.71 L 3.07 L Hgb 8.5 L 9.6 L Hct 26.3 L 29.7 L MCV 97.0 96.7 MCH 31.4 31.3 MCHC 32.3 32.3 RDW 13.3 13.9 Plt Count 211 194 MPV 9.1 L 9.5 Immature Gran % (Auto) 0.2 Neut % (Auto) 73.4 H Lymph % (Auto) 15.6 L [place] % (Auto) 8.5 Eos % (Auto) 1.7 Baso % (Auto) 0.6 Lymph # (Auto) 0.8 L [place] # (Auto) 0.4 Eos # (Auto) 0.1 Baso # (Auto) 0.0 Abs Immat Gran (auto) 0.01 Absolute Neuts (auto) 3.5 Absolute Nucleated RBC 0.000 0.000 Nucleated RBC % (auto) 0.0 0.0 Smear Tech's Comments VERIFIED PT INR Sodium 138 Potassium 4.3 Chloride 106 Carbon Dioxide 28 Anion Gap 8 L BUN 16 Creatinine 0.73 Estim Creat Clear Calc 103.5 Estimated GFR > 60 Random Glucose 92 Calcium 7.8 L D Total Bilirubin Direct Bilirubin AST ALT Alkaline Phosphatase Total Protein Albumin Urine Color Urine Appearance Urine pH Ur Specific [place] Urine Protein Urine Glucose (UA) Urine Ketones Urine Blood Urine Nitrite Ur Leukocyte Esterase Ethyl Alcohol Blood Type Antibody Screen Antibody Identification Antigen Identification Crossmatch Crossmatch ([facility]) 03/21/20 03/21/20 03/22/20 06:27 06:27 06:40 WBC 3.5 L 4.4 L RBC 2.98 L 3.06 L Hgb 9.5 L 9.4 L Hct 28.7 L 29.4 L MCV 96.3 96.1 MCH 31.9 30.7 MCHC 33.1 32.0 RDW 14.1 13.6 Plt Count 178 182 MPV 9.5 9.5 Immature Gran % (Auto) Neut % (Auto) Lymph % (Auto) [place] % (Auto) Eos % (Auto) Baso % (Auto) Lymph # (Auto) [place] # (Auto) Eos # (Auto) Baso # (Auto) Abs Immat Gran (auto) Absolute Neuts (auto) Absolute Nucleated RBC 0.000 0.000 Nucleated RBC % (auto) 0.0 0.0 Smear Tech's Comments PT INR Sodium 139 Potassium 4.4 Chloride 110 H Carbon Dioxide 26 Anion Gap 7 L BUN 16 Creatinine 0.68 Estim Creat Clear Calc 111.1 Estimated GFR > 60 Random Glucose 96 Calcium 7.8 L Total Bilirubin Direct Bilirubin AST ALT Alkaline Phosphatase Total Protein Albumin Urine Color Urine Appearance Urine pH Ur Specific [place] Urine Protein Urine Glucose (UA) Urine Ketones Urine Blood Urine Nitrite Ur Leukocyte Esterase Ethyl Alcohol Blood Type Antibody Screen Antibody Identification Antigen Identification Crossmatch Crossmatch ([facility]) 03/22/20 03/23/20 03/23/20 06:40 05:43 13:26 WBC 3.8 L RBC 2.96 L Hgb 9.2 L Hct 28.6 L MCV 96.6 MCH 31.1 MCHC 32.2 RDW 13.7 Plt Count 201 MPV 9.4 Immature Gran % (Auto) Neut % (Auto) Lymph % (Auto) [place] % (Auto) Eos % (Auto) Baso % (Auto) Lymph # (Auto) [place] # (Auto) Eos # (Auto) Baso # (Auto) Abs Immat Gran (auto) Absolute Neuts (auto) Absolute Nucleated RBC 0.000 Nucleated RBC % (auto) 0.0 Smear Tech's Comments PT INR Sodium 140 Potassium 4.3 Chloride 110 H Carbon Dioxide 26 Anion Gap 8 L BUN 13 Creatinine 0.65 Estim Creat Clear Calc 116.3 Estimated GFR > 60 Random Glucose 94 Calcium 7.7 L Total Bilirubin Direct Bilirubin AST ALT Alkaline Phosphatase Total Protein Albumin Urine Color Urine Appearance Urine pH Ur Specific [place] Urine Protein Urine Glucose (UA) Urine Ketones Urine Blood Urine Nitrite Ur Leukocyte Esterase Ethyl Alcohol Blood Type A Positive Antibody Screen Antibody Identification Antigen Identification Crossmatch Crossmatch ([facility]) Airway Mallampati Class: I TM Dist: >3cm Neck ROM: Full Loose/Missing/Broken Teeth: No Heart: rrr Lungs: nl Other: ao Assessment and Plan Assessment Anesthesia Assessment: Anesthesia Plan Discussed and Chart Reviewed Final Anesthetic Review NPO: Yes ASA Class: III Final Preanesthetic Review: No Changes in Pt Med Stat, Meds/Allgs Chart Reviewed, Consent Obtained/Reviewed and Anes Risks/Benef Reviewed Procedure Risk: Low Anesthetic Plan Anesthetic Plan: MAC: Disposition: Standard PACU
--- NOTE | 2020-03-23 14:10 | PM.OP ---
Brief Operative Note Date of Service: 03/23/20 Pre-op diagnosis: rectal bleeding Post-op diagnosis: same (rectal venous congestion) Procedure: colonoscopy Surgeon: Chandra Mercado Anesthesia: MAC Estimated blood loss (mL): 20 Pathology: none sent Condition: stable Disposition: PACU
--- NOTE | 2020-03-23 14:14 | PM.EVENT ---
Event Note Date of Service: 03/23/20 Event Note: colonoscopy dictated rectosigmoid venous congestion from 0-25 cm similar to 2017 findings. some oozing, but no focal area of bleeding that could be amenable to endoscopic therapy. rec follow hct consult Dr Bruno
--- NOTE | 2020-03-23 14:38 | P.PNIM_ITS ---
Subjective Subjective Date of Service: 03/23/20 Interval History: Patient seen and examined at bedside, patient still reporting bleeding per rectum Review of Systems Constitutional : No Weight loss, No Fever, No Chills, No Night Sweats, No Fatigue, No Malaise ENT/Mouth : No Hearing loss, No Ear Pain, No Nasal Congestion, No Sinus Pain, No Hoarseness, No sore throat, No Rhinorrhea, No Swallowing Difficulty Eyes: No Eye Pain, No Swelling, No Redness, No Foreign Body, No Discharge, No Vision Changes Cardiovascular : No Chest Pain, No SOB, No Dyspnea on Exertion, No Orthopnea, No Edema, No Palpitations Respiratory : No Cough, No Sputum, No Wheezing, No Smoke Exposure, recently noticed dyspnea with exertion Gastrointestinal : No Nausea, No Vomiting, No Diarrhea, No Constipation, No abdominal Pain, complaining of rectal bleeding Genitourinary : no irregular bleeding, No Dysuria, No Urinary Frequency, No Hematuria, No Urinary Incontinence, No Urgency, No Flank Pain, No Urinary Flow Changes, No Hesitancy Musculoskeletal : No joint pain, No Myalgias, No Joint Swelling Skin : No Skin Lesions, No rash Neuro : No Weakness, No Numbness, No Paresthesias, No Loss of Consciousness, No Dizziness, No Headache Psych : No Anxiety/Panic, No Depression, No SI/HI/AH/VH, No Social Issues, Heme/Lymph: No Bruising, No Bleeding,No Lymphadenopathy Endocrine : No Polyuria, No Polydipsia, No Temperature Intolerance Constitutional Constitutional: Reports weakness Cardiovascular Cardiovascular: Denies dyspnea Respiratory Respiratory: Denies dyspnea Gastrointestinal Gastrointestinal: Reports hematochezia and Denies vomiting Neurologic Neurologic: Reports weakness Physical Exam Vital Signs: Vital Signs: Last Vital Signs Temp 97.9 F 03/23/20 14:03 Pulse 69 03/23/20 14:03 Resp 16 03/23/20 14:03 BP 99/68 03/23/20 14:03 Pulse Ox 99 03/23/20 14:03 Body Mass Index 22.1 Const: General: cooperative and no acute distress Or ientation/consciousness: patient oriented x3 Eyes: General: appearance normal, both eyes and all related structures Pup ils: Equal, round and reactive pupils present Resp: Effort & Inspection: normal respiratory effort and able to speak in complete sentences Auscultation: clear to auscultation bilaterally Cardio: Rate: regular rate Rhythm: regular rhythm GI: Palpation (GI): Soft to palpation Auscultation: normal bowel sounds : Other: multiple large hard masses in the left scrotum, mildly tender Skin: General skin exam: no rashes or lesions noted Neuro: General: patient oriented x3 Cranial nerves: Yes Equal, round and reactive pupils present Cognition (Neuro): normal cognition Extrem: Other: limited range of motion of his left knee presence of surgical scar. General: Yes normal to inspection and Yes no pedal edema Objective Data Current Medications Generic Name Dose Route Start Last Admin Trade Name Freq PRN Reason Stop Dose Admin Acetaminophen 650 mg 03/19/20 22:42 03/23/20 07:58 Acetaminophen 325 Mg Tablet PO 650 mg Q6H PRN Administration Pain, Mild (Pain Scale 1-3) Gabapentin 600 mg 03/20/20 21:00 03/23/20 07:57 Gabapentin 600 Mg Tablet PO 600 mg TID BON Administration Lactated Ringer's 1,000 mls @ 50 mls/hr 03/23/20 13:15 03/23/20 14:32 Lr IVCONT 0 mls/hr .Q20H BON Infusion Ondansetron HCl 4 mg 03/19/20 22:42 03/22/20 19:24 Ondansetron Hcl 4 Mg/2 Ml Vial IVPUSH 4 mg Q8H PRN Administration Nausea and Vomiting Sodium Chloride 3 ml 03/20/20 00:00 03/23/20 07:57 0.9 % Sodium Chloride Flush 3 Ml Syringe IVFLUSH 3 ml QSHIFT BON Administration Labs CBC & Chem 7: 03/23/20 05:43 03/22/20 06:40 Assessment and Plan (1) GI bleed: Status: Acute (2) Anemia: Status: Acute (3) Mass of left testicle: Status: Acute (4) History of hemorrhoids: Status: Acute (5) Rectal varices: Status: Acute (6) Acute on chronic blood loss anemia: Status: Acute (7) Symptomatic anemia: Status: Acute Assessment and Plan: this is a 59-year-old male with past medical history as mentioned above who presents to the hospital with GI bleed. acute on chronic blood loss anemia Symptomatic anemia Secondary to GI bleed likely result of of rectosigmoid varices bleeding Plan for colonoscopy today monitor H&H closely GI bleed GI input appreciated, planned colonoscopy today hemoglobin stable around 9.3 after 2 units transfusion Monitor H and H Left scrotal mass Ultrasound showing but seems to be loculated hydrocele Urology input appreciated, plan for surgery once GI bleed resolved DVT prophylaxis SCDs
--- NOTE | 2020-03-23 16:02 | OP_ITS ---
SURGEON: Chandra Mercado MD INDICATIONS: Rectal bleeding. PREOPERATIVE DIAGNOSIS: POSTOPERATIVE DIAGNOSIS: PROCEDURE PERFORMED: Colonoscopy to the cecum. ESTIMATED BLOOD LOSS: COMPLICATIONS: ANESTHESIA: ASSISTANTS: SPECIMENS: MEDICATIONS: Monitored anesthesia care. DESCRIPTION OF PROCEDURE: History and physical performed. The risks and benefits of the procedure were explained to the patient. Informed consent was obtained. The patient was placed in the left lateral decubitus position. A digital rectal exam was performed and was found to be normal. The Olympus pediatric video colonoscope was introduced into the rectum and advanced to the cecum without difficulty. The cecum was identified by transillumination, palpation, and identification of ileocecal valve. Examination was performed and the scope was removed. He tolerated the procedure well and was taken to recovery area in stable condition. FINDINGS: The terminal ileum was not examined. The visualized colonic mucosa from the cecum to about 20 to 25 cm was normal, where there was an abrupt transition to abnormal mucosa, which showed venous congestion and loss of normal vascular pattern from 0 to 25 cm. There appeared to be probable varicosities in this area. Retroflexed examination showed internal hemorrhoids. The mucosa showed vascular congestion. There was some oozing, but no definite site of bleeding that could be treated endoscopically. Because of the vascular congestion, no biopsies were obtained. IMPRESSION: Rectal and sigmoid venous congestion. Probable rectal varices. RECOMMENDATIONS: 1. Follow H and H. 2. Consult Dr. Bruno. MD KAYLA Peñaloza/QING / [id number] MTDD
--- NOTE | 2020-03-23 16:06 | PC.NURSE ---
Earlier in shift, Pt getting more agitated due to NPO status. Coming out of room, yelling in hallway. Explained to Pt that he would be going for colonoscopy shortly and asked Pt to return to room. Pt yelling in room, seemingly having conversation with himself. Came out of room yelling at staff again, stating If I wasn't bleeding so much, I would take my bags and leave here now! . Security and [employer] Service Advisor called, aware. Security successful in de-escalating Pt. Pt returned from colonoscopy, VSS, still with some bloody stools.
--- NOTE | 2020-03-23 16:41 | PM.CNGS ---
History of Present Illness Consult details Consult date: 03/23/20 Narrative: 59-year-old male referred for rectal bleeding. He describes periodic bleeding from his rectum since 2007. He says the last episode he was here for this was about 3 years ago. However, for the past several days, had been noticing periodic episodes that have been heavy. He says that he notices blood on his pants as well whenever this happens. He had a colonoscopy today showing what appears to be varices/venous ectasia in the rectum all the way to the level 30 cm in the sigmoid. These were losing but not actively bleeding at the time of examination. He says that the bleeding usually happens when he is constipated. He does have a history of all abuse but he says that he had quit about 4 years ago. He had been transfused 2 units of packed RBC for anemia and he was admitted 5 days ago. He was here in the hospital for similar problem in 2017 and a colonoscopy done at that time also showed the same findings of venous ectasia in the rectosigmoid. Review of Systems Constitutional: Constitutional: Reports weakness Cardiovascular: Cardiovascular: Denies chest pain, Denies dyspnea and Denies dyspnea on exertion Respiratory: Respiratory: Denies cough, Denies dyspnea and Denies dyspnea on exertion Gastrointestinal: Gastrointestinal: Reports hematochezia, Denies change in bowel habits and Reports constipation Genitourinary: Genitourinary: Denies hematuria and Denies difficulty urinating Musculoskeletal: Musculoskeletal: Denies back pain and Denies limited range of motion Neurologic: Reports weakness Psychiatric: Psychiatric: Denies depression and Denies mood swings PMFSH Past Medical History Medical History Acute hemorrhoid Alcohol abuse GI bleed Surgical History Surgical History H/O hemorrhoidectomy Hx of hernia repair Hx of total knee replacement Social History Social History Household Members: None Housing: Homeless Housing Other:: lived in a camping trailer, now homeless at this time Do you presently have visiting nurse or other home services: No Alcohol intake: current Alcohol intake frequency: 3 or more drinks per day Alcohol type: beer Smoking Status: Never smoker Use of substances other than those prescribed or required for medical reasons: Yes Substance Use Type: Marijuana Substance Use Frequency: Daily Currently Displaying Signs/Symptoms of Drug Intoxication Withdrawal: No Have you been hit, kicked, punched, or otherwise hurt by someone within the past year? If so, by whom?: No Do you feel safe in your current relationship?: No Current Relationship Is there a partner from a previous relationship who is making you feel unsafe now?: No Are you made to feel afraid or neglected: No Advance Directives: No Advance Directives Information Provided: Yes Do you have thoughts of harming others: None Do you have a plan to hurt others: No Plan Recently lost weight without trying: No service: No Current occupational status: disabled Meds Allergies Allergy/AdvReac Type Severity Reaction Status Date / Time No Known Allergies Allergy Verified 03/19/20 19:39 [No Known Allergies*] Home Medications Medication Instructions Recorded Confirmed Type gabapentin 600 mg PO TID 03/20/20 03/20/20 History naproxen sodium 550 mg PO BID 03/20/20 03/20/20 History Physical Exam Vital Signs: Vital Signs: Last Vital Signs Temp 97.9 F 03/23/20 15:44 Pulse 89 03/23/20 15:44 Resp 19 03/23/20 15:44 BP 129/90 H 03/23/20 15:44 Pulse Ox 99 03/23/20 15:44 Body Mass Index 22.1 Const: General: comfortable and no acute distress Orientation/consciousness: patient oriented x3 Neck: Neck: Yes no lymphadenopathy Resp: Auscultation: clear to auscultation bilaterally Cardio: Rhythm: regular rhythm GI: Other: Rectal exam shows small hemorrhoids, no active bleeding at this time, no tenderness, no other lesions in the anal canal itself Palpation (GI): Soft to palpation, nontender and no guarding Neuro: General: patient oriented x3 Results Labs Result diagrams: 03/23/20 05:43 03/22/20 06:40 Labs: Abnormal lab results 03/19/20 03/23/20 03/23/20 Range/Units 18:09 05:43 13:26 WBC 3.8 L (4.8-10.8) X10*3/uL RBC 2.96 L (4.60-5.80) X10*6/uL Hgb 9.2 L (14.0-18.0) g/dl Hct 28.6 L (42-52) % Crossmatch See Detail Crossmatch ([facility]) See Detail See Detail Short CBC 03/23/20 Range/Units 05:43 WBC 3.8 L (4.8-10.8) X10*3/uL Hgb 9.2 L (14.0-18.0) g/dl Hct 28.6 L (42-52) % Plt Count 201 (160-400) X10*3/uL Urine 03/19/20 Range/Units 23:27 Urine Color YELLOW Urine Appearance CLEAR Urine pH 7.0 (5.0-8.0) Ur Specific [place] 1.015 (1.005-1.025) Urine Protein NEG (NEG-TRACE) MG/DL Urine Glucose (UA) NEG (NEG) MG/DL All other labs normal. Assessment and Plan (1) Rectal varices: Status: Acute He has had colonoscopy today showing findings of venous ectasia diffusely in the rectum all the way to the sigmoid at level 30 cm. Currently, he does not seem to be actively bleeding. I am uncertain if this venous ectasias is related to his history alcohol abuse. He states he has had periodic bleeding 2007. He does describe this as usually happening with constipation. Currently, he does not seem to be actively bleeding, although he states that he had some blood earlier this morning with the bowel prep. His hemoglobin should be followed and this time we can transfuse as needed. He may need to be on stool softeners or at least fiber supplementation at this time. I will need to discuss the findings on colonoscopy in detail with Dr. Mercado. I will follow along while he is in the hospital closely.
--- NOTE | 2020-03-23 19:57 | MHC.PIE ---
Addendum entered by Juan Dee RN 03/23/20 20:34: i; new order debucain tid prn Original Note: p; pt c/o pain to buttocks/rectum asking for preparation H i; dr ballard notified e; will cont to monitor
--- NOTE | 2020-03-24 | CT_ITS ---
EXAMINATION: CT ABDOMEN AND PELVIS WITHOUT AND WITH CONTRAST (GI BLEED) CLINICAL INFORMATION: GI bleed. COMPARISON: CT abdomen and pelvis with contrast 11/10/2016, ultrasound abdomen 11/11/2016 TECHNIQUE: Multiple axial images were obtained through the abdomen and pelvis without and with administration of 85 mL of Omnipaque 350 intravenous contrast. Postcontrast images are obtained during the late arterial phase, portal venous phase, as well as delayed images. No oral contrast. Reformatted images are generated on the CT workstation for the 4 phases and uploaded to PACS. This CT examination was performed using dose optimization techniques as appropriate, variously including the following: *Automated exposure control *Adjustment of mA and/or kV according to patient size (this includes techniques or standardized protocols for targeted exams where dose is matched to indication/reason for exam; i.e. extremities or head) *Use of iterative reconstruction technique DLP: 702 mGy-cm FINDINGS: LUNG BASES: The visualized lung bases are unremarkable. LIVER, GALLBLADDER, AND BILIARY TREE: The liver is normal in size, shape, and attenuation. No focal hepatic lesion or biliary ductal dilatation is present. The gallbladder is unremarkable with no evidence of radiopaque gallstones, gallbladder wall thickening, or obvious pericholecystic inflammatory changes. PANCREAS: Unremarkable. SPLEEN: Unremarkable. ADRENAL GLANDS: Unremarkable. KIDNEYS AND URETERS: The kidneys are normal in size, shape, and attenuation. No hydronephrosis, hydroureter, or calculi seen. No perinephric stranding. BLADDER: Unremarkable. GASTROINTESTINAL TRACT: There is moderate stool throughout the colon. There is no gaseous dilatation of bowel, obstruction, pneumatosis, or free air. There is no active extravasation contrast/bleeding seen in the bowel wall or lumen. No ascites or fluid collection. There is circumferential thickening from the mid sigmoid in continuity through the rectum, similar to prior CT 11/10/2016. No abnormal enhancement. Finding appears chronic. No perirectal stranding. Numerous calcified phleboliths are again present sigmoid and rectum. ABDOMINAL WALL: No significant hernia is appreciated. LYMPH NODES: No lymphadenopathy. VASCULAR: Unremarkable. No abdominal aortic aneurysm. Patent celiac trunk, superior mesenteric artery, and proximal ABDULAZIZ. Innumerable calcified phleboliths throughout the sigmoid and rectum. PELVIC VISCERA: No additional findings. OSSEOUS STRUCTURES: Degenerative changes lumbosacral junction. Scattered Schmorl's nodes upper lumbar spine. CT/CT angio abdomen pelvis IMPRESSION: 1. Chronic circumferential thickening from mid sigmoid in continuity through the rectum, similar to prior CT 11/10/2016. No abnormal enhancement, acute intraluminal hemorrhage, or proximal obstruction. No acute perinephric rectal inflammatory changes, ascites, or fluid collection. 2. If clinically indicated, further assessment for occult GI bleed could be performed with radionuclide bleeding scan.
[2020-03-24 04:00] VITALS: BP 101/67; PULSE 58; RESP 18; TEMP 37; O2SAT 98
--- NOTE | 2020-03-24 06:49 | PM.PNGS ---
Subjective Subjective Date of Service: 03/24/20 Interval history: says he had blood on toilet bowel last night denies abdominal pain overall feels well Physical Exam Vital Signs: Vital Signs: Last Vital Signs Temp 98.6 F 03/24/20 04:00 Pulse 58 03/24/20 04:00 Resp 18 03/24/20 04:00 BP 101/67 03/24/20 04:00 Pulse Ox 98 03/24/20 04:00 Body Mass Index 22.1 Chemistry 03/21/20 03/22/20 06:27 06:40 Sodium 139 140 Potassium 4.4 4.3 Carbon Dioxide 26 26 BUN 16 13 Creatinine 0.68 0.65 Calcium 7.8 L 7.7 L Hematology 03/21/20 03/22/20 03/23/20 06:27 06:40 05:43 WBC 3.5 L 4.4 L 3.8 L Hgb 9.5 L 9.4 L 9.2 L Plt Count 178 182 201 Const: General: comfortable and no acute distress Resp: Effort & Inspection: normal respiratory effort Cardio: Rhythm: regular rhythm GI: Inspection: No distended Palpation (GI): Soft to palpation, nontender, no guarding and not rigid Progress Note: A&P Assessment and plan (1) GI bleed: Status: Acute Assessment and Plan: colonoscopy shows vascular congestion, diffuse, in rectosigmoid follow Hg will discuss with Dr. Mercado re therapeutic measure - steroid enemas? abdomen otherwise benign await path report for biopsies Fall Risk Details Current Medications: Current Medications Generic Name Dose Route Start Last Admin Trade Name Leviq PRN Reason Stop Dose Admin Acetaminophen 650 mg 03/19/20 22:42 03/23/20 19:29 Acetaminophen 325 Mg Tablet PO 650 mg Q6H PRN Administration Pain, Mild (Pain Scale 1-3) Dibucaine 1 appl 03/23/20 20:32 Dibucaine 1 % Oint 28 Gm Tube TOPICAL TID PRN Hemorrhoids Protocol Gabapentin 600 mg 03/20/20 21:00 03/23/20 19:30 Gabapentin 600 Mg Tablet PO 600 mg TID BON Administration Lactated Ringer's 1,000 mls @ 50 mls/hr 03/23/20 13:15 03/23/20 18:03 Lr IVCONT 50 mls/hr .Q20H BON Administration Ondansetron HCl 4 mg 03/19/20 22:42 03/22/20 19:24 Ondansetron Hcl 4 Mg/2 Ml Vial IVPUSH 4 mg Q8H PRN Administration Nausea and Vomiting Sodium Chloride 3 ml 03/20/20 00:00 03/23/20 23:43 0.9 % Sodium Chloride Flush 3 Ml Syringe IVFLUSH Not Given QSHIFT BON Time Spent With Patient Time: Total time spent is greater than 50% in coordination of care (as documented) at patient's floor/unit and/or counseling patient: Time with patient: 15 - 24 minutes
[2020-03-24] MEDS: Gabapentin 600 MG TABLET PO ×3 (07:29→19:57)
[2020-03-24 07:39] VITALS: BP 127/75; PULSE 59; RESP 20; TEMP 36.4; O2SAT 100
[2020-03-24] MEDS: Acetaminophen 325 MG TABLET 650 MG PO ×2 (07:41→14:27)
--- NOTE | 2020-03-24 07:44 | HO.POSTANES ---
Post Anesthesia Evaluation Post Anesthesia Evaluation Vital Signs: Vital Signs Temp Pulse Resp BP Pulse Ox 03/24/20 07:39 97.6 F 59 20 127/75 100 03/24/20 04:00 98.6 F 58 18 101/67 98 03/23/20 23:15 97.7 F 66 20 110/69 100 03/23/20 20:00 98.3 F 70 18 107/65 97 Anesthesia: Monitored Mental Status: Awake Pain Control: Satisfactory Nausea/Vomiting: None Hydration: Adequate Anesthesia-Related Issues: No Anes. Related Issues
[2020-03-24 09:23] LABS: MANUAL DIFF FLAG NO
[2020-03-24 09:25] LABS: Basophils Percent Auto 0.8 % (0-2); Eosinophils Absolute Auto 0.1 X10*3/uL (0.0-0.4); Eosinophils Percent Auto 1.5 % (0-4); Hematocrit 30.2 % (42-52); Hemoglobin 9.9 g/dl (14.0-18.0); Imm Gran Abs Auto 0.01 X10*3/uL (0.00-0.03); Imm Gran Pct Auto 0.3 % (0.0-0.4); Lymphocytes Percent Auto 26.3 % (20-40); Mean Corpuscular HGB Conc 32.8 g/dl (31.0-36.0); Mean Corpuscular Hemoglobin 31.1 pg (27.0-33.0); Mean Platelet Volume 9.5 fL (9.4-12.4); Monocytes Absolute Auto 0.4 X10*3/uL (0.1-1.2); Monocytes Percent Auto 8.9 % (2-11); Neutrophils Absolute Auto 2.4 X10*3/uL (2.0-8.3); Neutrophils Percent Auto 62.2 % (45-73); Platelet Count 250 X10*3/uL (160-400); Red Blood Count 3.18 X10*6/uL (4.60-5.80); Red Cell Distribution Width 13.5 % (11.0-16.0); White Blood Count 3.9 X10*3/uL (4.8-10.8)
[2020-03-24 09:49] LABS: Anion Gap 14 (12-20); Blood Urea Nitrogen 16 mg/dL (9-16); Carbon Dioxide 24 mmol/L (22-29); Chloride 106 mmol/L (96-108); Creatinine Clr Calc Pharmacy 106.4; Estimated Glomerular Filt Rate > 60; Glucose Random 117 mg/dL (60-115); Potassium 4.5 mmol/l (3.3-5.1); Sodium 139 mmol/L (135-145)
[2020-03-24 09:57] LABS: Calcium 8.5 mg/dL (8.4-10.2)
[2020-03-24 11:07] VITALS: BP 109/71; PULSE 64; RESP 18; TEMP 36.9; O2SAT 99
[2020-03-24] MEDS: polyethylene glycoL 3350 17 GM POWD.PACK PO (11:08)
[2020-03-24] MEDS: Lactated Ringers 1,000 ML 50 ML IVCONT ×2 (13:45→20:03)
--- NOTE | 2020-03-24 14:23 | P.PNGI_ITS ---
Subjective Subjective Date of Service: 03/24/20 Interval History: continues with rectal venous bleeding hematocrit remains stable Physical Exam Vital Signs: Vital Signs: Last Vital Signs Temp 98.4 F 03/24/20 11:07 Pulse 64 03/24/20 11:07 Resp 18 03/24/20 11:07 BP 109/71 03/24/20 11:07 Pulse Ox 99 03/24/20 11:07 Body Mass Index 22.1 Const: General: cooperative, alert and awake GI: Inspection: Yes normal to inspection Palpation (GI): Soft to palpation and No hepatosplenomegaly present Extrem: General: Yes no clubbing, cyanosis or edema Objective Data Labs CBC & Chem 7: 03/24/20 08:52 03/24/20 08:52 Progress Note: A&P Assessment and plan (1) GI bleed: Status: Acute Assessment and Plan: discussed findings at colonoscopy with Dr Bruno. vascular surgery consult ordered. consider transfer to tertiary care center for second opinion. Time Spent With Patient Time: Total time spent is greater than 50% in coordination of care (as docume nted) at patient's floor/unit and/or counseling patient: Time with patient: less than 15 minutes
--- NOTE | 2020-03-24 14:47 | PM.EVENT ---
Event Note Date of Service: 03/24/20 Event Note: Full consult to follow. Will order CTA abdomen and pelvis.
--- NOTE | 2020-03-24 14:50 | P.PNIM_ITS ---
Subjective Subjective Date of Service: 03/24/20 Interval History: Patient seen and examined at bedside, patient still reporting bleeding Constitutional Constitutional: Reports weakness Cardiovascular Cardiovascular: Denies dyspnea Respiratory Respiratory: Denies dyspnea Gastrointestinal Gastrointestinal: Reports hematochezia and Denies vomiting Neurologic Neurologic: Reports weakness Physical Exam Vital Signs: Vital Signs: Last Vital Signs Temp 98.4 F 03/24/20 11:07 Pulse 64 03/24/20 11:07 Resp 18 03/24/20 11:07 BP 109/71 03/24/20 11:07 Pulse Ox 99 03/24/20 11:07 Body Mass Index 22.1 Const: General: cooperative and no acute distress Orientation/consciousn ess: patient oriented x3 Eyes: General: appearance normal, both eyes and all related structures Pupils: Equal, round and reactive pupils present Resp: Effort & Inspection: normal respiratory effort and able to speak in complete sentences Auscultation: clear to auscultation bilaterally Cardio: Rate: regular rate Rhythm: regular rhythm GI: Palpation (GI): Soft to palpation Auscultation: normal bowel sounds : Other: multiple large hard masses in the left scrotum, mildly tender Skin: General skin exam: no rashes or lesions noted Neuro: General: patient oriented x3 Cranial nerves: Yes Equal, round and reactive pupils present Cognition (Neuro): normal cognition Extrem: Other: limited range of motion of his left knee presence of surgical scar. General: Yes normal to inspection and Yes no pedal edema Objective Data Current Medications Generic Name Dose Route Start Last Admin Trade Name Freq PRN Reason Stop Dose Admin Acetaminophen 650 mg 03/19/20 22:42 03/24/20 14:27 Acetaminophen 325 Mg Tablet PO 650 mg Q6H PRN Administration Pain, Mild (Pain Scale 1-3) Dibucaine 1 appl 03/23/20 20:32 03/24/20 07:29 Dibucaine 1 % Oint 28 Gm Tube TOPICAL 1 appl TID PRN Administration Hemorrhoids Protocol Gabapentin 600 mg 03/20/20 21:00 03/24/20 14:27 Gabapentin 600 Mg Tablet PO 600 mg TID BON Administration Lactated Ringer's 1,000 mls @ 50 mls/hr 03/23/20 13:15 03/24/20 13:45 Lr IVCONT 50 mls/hr .Q20H BON Administration Ondansetron HCl 4 mg 03/19/20 22:42 03/22/20 19:24 Ondansetron Hcl 4 Mg/2 Ml Vial IVPUSH 4 mg Q8H PRN Administration Nausea and Vomiting Polyethylene Glycol 17 gm 03/24/20 11:00 03/24/20 11:08 Polyethylene Glycol 3350 17 Gm Powd.Pack PO 17 gm DAILY BON Administration Sodium Chloride 3 ml 03/20/20 00:00 03/24/20 14:28 0.9 % Sodium Chloride Flush 3 Ml Syringe IVFLUSH Not Given QSHIFT BON Labs CBC & Chem 7: 03/24/20 08:52 03/24/20 08:52 Assessment and Plan (1) GI bleed: Status: Acute (2) Anemia: Status: Acute (3) Mass of left testicle: Status: Acute (4) History of hemorrhoids: Status: Acute (5) Rectal varices: Status: Acute (6) Acute on chronic blood loss anemia: Status: Acute (7) Symptomatic anemia: Status: Acute Assessment and Plan: this is a 59-year-old male with past medical history as mentioned above who presents to the hospital with GI bleed. Acute on chronic blood loss anemia Symptomatic anemia Secondary to GI bleed received 2 units of PRBCs status post colonoscopy on colonoscopy shows venous congestion of 25 cm with mild oozing patient still has bleeding GI recommended General surgery and vascular surgery opinion monitor H&H closely Left scrotal mass Ultrasound showing but seems to be loculated hydrocele Urology input appreciated, plan for surgery once GI bleed resolved DVT prophylaxis SCDs
[2020-03-24 15:54] VITALS: BP 115/76; PULSE 61; RESP 18; TEMP 36.6; O2SAT 100
[2020-03-24] MEDS: iohexoL 350 MG/ML 100 ML INFUS..BTL 85 ML IV (16:35)
[2020-03-24 19:46] VITALS: BP 105/66; PULSE 60; RESP 18; TEMP 36.8; O2SAT 98
[2020-03-24] MEDS: 0.9 % Sodium Chloride Flush 3 ML SYRINGE IVFLUSH (19:57)
[2020-03-24 23:09] VITALS: BP 86/60; PULSE 61; RESP 18; TEMP 37; O2SAT 98
[2020-03-24] MEDS: 0.9 % Sodium Chloride 1,000 ML 999 ML IVCONT (23:44)
[2020-03-25] VITALS (7 sets, daily range): BP systolic 94–123; BP diastolic 51–80; PULSE 60–72; RESP 18; TEMP 36.4–37; O2SAT 97–100
--- NOTE | 2020-03-25 00:51 | PC.NURSE ---
At 0000 pt BP 86/60 manually. Pt asymptomatic. All other vss. Dr Leandro Bah notified. 1 L NS bolus ordered and administered. BP after bolus 110/55.
[2020-03-25 06:42] LABS: MANUAL DIFF FLAG NO
[2020-03-25 06:49] LABS: Eosinophils Absolute Auto 0.1 X10*3/uL (0.0-0.4); Hematocrit 28.6 % (42-52); Hemoglobin 9.1 g/dl (14.0-18.0); Imm Gran Abs Auto 0.02 X10*3/uL (0.00-0.03); Imm Gran Pct Auto 0.5 % (0.0-0.4); Lymphocytes Absolute Auto 1.2 X10*3/uL (1.2-4.9); Lymphocytes Percent Auto 30.8 % (20-40); Mean Corpuscular HGB Conc 31.8 g/dl (31.0-36.0); Mean Corpuscular Hemoglobin 30.3 pg (27.0-33.0); Mean Corpuscular Volume 95.3 fL (80-98); Mean Platelet Volume 9.8 fL (9.4-12.4); Monocytes Absolute Auto 0.5 X10*3/uL (0.1-1.2); Neutrophils Absolute Auto 2.1 X10*3/uL (2.0-8.3); Neutrophils Percent Auto 53.7 % (45-73); Platelet Count 254 X10*3/uL (160-400); Red Cell Distribution Width 13.2 % (11.0-16.0)
[2020-03-25] MEDS: polyethylene glycoL 3350 17 GM POWD.PACK PO (08:12)
[2020-03-25] MEDS: Gabapentin 600 MG TABLET PO ×3 (08:13→20:28)
[2020-03-25] MEDS: 0.9 % Sodium Chloride Flush 3 ML SYRINGE IVFLUSH ×2 (08:13→20:28)
[2020-03-25] MEDS: Acetaminophen 325 MG TABLET 650 MG PO (08:19)
--- NOTE | 2020-03-25 08:29 | PM.PNGS ---
Subjective Subjective Date of Service: 03/25/20 Interval history: Feels well Denies complaints No episodes of GI bleed overnight Physical Exam Vital Signs: Vital Signs: Last Vital Signs Temp 97.5 F 03/25/20 08:00 Pulse 68 03/25/20 08:00 Resp 18 03/25/20 08:00 BP 106/73 03/25/20 08:00 Pulse Ox 97 03/25/20 08:00 Body Mass Index 22.1 Chemistry 03/24/20 08:52 Sodium 139 Potassium 4.5 Carbon Dioxide 24 BUN 16 Creatinine 0.71 Calcium 8.5 D Hematology 03/23/20 03/24/20 03/25/20 05:43 08:52 05:25 WBC 3.8 L 3.9 L 4.0 L Hgb 9.2 L 9.9 L 9.1 L Plt Count 201 250 254 Const: General: comfortable and no acute distress Cardio: Rate: regular rate Rhythm: regular rhythm GI: Inspection: No distended Palpation (GI): Soft to palpation and nontender Progress Note: A&P Assessment and plan (1) Rectal varices: Status: Acute Assessment and Plan: 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 Periodic bleeding over the years Patient may need resection - with ultra-low anterior resection or APR down the line He says he does not want any stoma however Best to seek opinion with tertiary center - as outpatient ideally Hemoglobin steady Fall Risk Details Current Medications: Current Medications Generic Name Dose Route Start Last Admin Trade Name Freq PRN Reason Stop Dose Admin Acetaminophen 650 mg 03/19/20 22:42 03/25/20 08:19 Acetaminophen 325 Mg Tablet PO 650 mg Q6H PRN Administration Pain, Mild (Pain Scale 1-3) Dibucaine 1 appl 03/23/20 20:32 03/25/20 08:19 Dibucaine 1 % Oint 28 Gm Tube TOPICAL 1 appl TID PRN Administration Hemorrhoids Protocol Gabapentin 600 mg 03/20/20 21:00 03/25/20 08:13 Gabapentin 600 Mg Tablet PO 600 mg TID BON Administration Lactated Ringer's 1,000 mls @ 50 mls/hr 03/23/20 13:15 03/24/20 20:03 Lr IVCONT 50 mls/hr .Q20H BON Administration Ondansetron HCl 4 mg 03/19/20 22:42 03/22/20 19:24 Ondansetron Hcl 4 Mg/2 Ml Vial IVPUSH 4 mg Q8H PRN Administration Nausea and Vomiting Polyethylene Glycol 17 gm 03/24/20 11:00 03/25/20 08:12 Polyethylene Glycol 3350 17 Gm Powd.Pack PO 17 gm DAILY BON Administration Sodium Chloride 3 ml 03/20/20 00:00 03/25/20 08:13 0.9 % Sodium Chloride Flush 3 Ml Syringe IVFLUSH 3 ml QSHIFT BON Administration Time Spent With Patient Time: Total time spent is greater than 50% in coordination of care (as documented) at patient's floor/unit and/or counseling patient: Time with patient: 15 - 24 minutes
--- NOTE | 2020-03-25 10:42 | PM.EVENT ---
Event Note Date of Service: 03/25/20 Event Note: Full consult dictated. CT scan reviewed. No vascular intervention indicated. Continue workup per GI and General surgery.
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
[2020-03-25] MEDS: Lactated Ringers 1,000 ML 50 ML IVCONT (13:15)
--- NOTE | 2020-03-25 15:40 | PM.GIPN ---
Subjective Subjective Date of Service: 03/25/20 Interval History: no abd pain pt reports some rectal bleeding Physical Exam Vital Signs: Vital Signs: Last Vital Signs Temp 97.7 F 03/25/20 15:30 Pulse 71 03/25/20 15:30 Resp 18 03/25/20 15:30 BP 123/80 03/25/20 15:30 Pulse Ox 100 03/25/20 15:30 Body Mass Index 22.1 Const: General: cooperative, comfortable, alert and awake GI: Other: soft, non tender, no masses Psych: Other: short tempered with nursing regarding meals Objective Data Labs CBC & Chem 7: 03/25/20 05:25 03/24/20 08:52 Labs: Laboratory Results - last 24 hr 03/25/20 05:25 WBC 4.0 L RBC 3.00 L Hgb 9.1 L Hct 28.6 L MCV 95.3 MCH 30.3 MCHC 31.8 RDW 13.2 Plt Count 254 MPV 9.8 Immature Gran % (Auto) 0.5 H Neut % (Auto) 53.7 Lymph % (Auto) 30.8 Harris % (Auto) 12.0 H Eos % (Auto) 2.0 Baso % (Auto) 1.0 Lymph # (Auto) 1.2 Harris # (Auto) 0.5 Eos # (Auto) 0.1 Baso # (Auto) 0.0 Abs Immat Gran (auto) 0.02 Absolute Neuts (auto) 2.1 Absolute Nucleated RBC 0.000 Nucleated RBC % (auto) 0.0 Progress Note: A&P Assessment and plan (1) GI bleed: Status: Acute Assessment and Plan: reviewed recommendations of Freddy Bruno and Ruthann agree with these discussed in detail with patient advised him to be respectful in interactions with staff. Fall Risk Details Current Medications: Current Medications Generic Name Dose Route Start Last Admin Trade Name Freq PRN Reason Stop Dose Admin Acetaminophen 650 mg 03/19/20 22:42 03/25/20 08:19 Acetaminophen 325 Mg Tablet PO 650 mg Q6H PRN Administration Pain, Mild (Pain Scale 1-3) Dibucaine 1 appl 03/23/20 20:32 03/25/20 08:19 Dibucaine 1 % Oint 28 Gm Tube TOPICAL 1 appl TID PRN Administration Hemorrhoids Protocol Gabapentin 600 mg 03/20/20 21:00 03/25/20 15:18 Gabapentin 600 Mg Tablet PO 600 mg TID BON Administration Lactated Ringer's 1,000 mls @ 50 mls/hr 03/23/20 13:15 03/25/20 13:15 Lr IVCONT 50 mls/hr .Q20H BON Administration Ondansetron HCl 4 mg 03/19/20 22:42 03/22/20 19:24 Ondansetron Hcl 4 Mg/2 Ml Vial IVPUSH 4 mg Q8H PRN Administration Nausea and Vomiting Polyethylene Glycol 17 gm 03/24/20 11:00 03/25/20 08:12 Polyethylene Glycol 3350 17 Gm Powd.Pack PO 17 gm DAILY BON Administration Sodium Chloride 3 ml 03/20/20 00:00 03/25/20 15:19 0.9 % Sodium Chloride Flush 3 Ml Syringe IVFLUSH Not Given QSHIFT BON Time Spent With Patient Time: Total time spent is greater than 50% in coordination of care (as documented) at patient's floor/unit and/or counseling patient: Time with patient: less than 15 minutes
--- NOTE | 2020-03-25 15:43 | P.PNIM_ITS ---
Subjective Subjective Date of Service: 03/25/20 Interval History: Patient seen and examined at bedside, patient still reporting bleeding Review of Systems Constitutional : No Weight loss, No Fever, No Chills, No Night Sweats, No Fatigue, No Malaise ENT/Mouth : No Hearing loss, No Ear Pain, No Nasal Congestion, No Sinus Pain, No Hoarseness, No sore throat, No Rhinorrhea, No Swallowing Difficulty Eyes: No Eye Pain, No Swelling, No Redness, No Foreign Body, No Discharge, No Vision Changes Cardiovascular : No Chest Pain, No SOB, No Dyspnea on Exertion, No Orthopnea, No Edema, No Palpitations Respiratory : No Cough, No Sputum, No Wheezing, No Smoke Exposure, recently noticed dyspnea with exertion Gastrointestinal : No Nausea, No Vomiting, No Diarrhea, No Constipation, No abdominal Pain, complaining of rectal bleeding Genitourinary : no irregular bleeding, No Dysuria, No Urinary Frequency, No Hematuria, No Urinary Incontinence, No Urgency, No Flank Pain, No Urinary Flow Changes, No Hesitancy Musculoskeletal : No joint pain, No Myalgias, No Joint Swelling Skin : No Skin Lesions, No rash Neuro : No Weakness, No Numbness, No Paresthesias, No Loss of Consciousness, No Dizziness, No Headache Psych : No Anxiety/Panic, No Depression, No SI/HI/AH/VH, No Social Issues, Heme/Lymph: No Bruising, No Bleeding,No Lymphadenopathy Endocrine : No Polyuria, No Polydipsia, No Temperature Intolerance Constitutional Constitutional: Reports weakness Cardiovascular Cardiovascular: Denies dyspnea Respiratory Respiratory: Denies dyspnea Gastrointestinal Gastrointestinal: Reports hematochezia and Denies vomiting Neurologic Neurologic: Reports weakness Physical Exam Vital Signs: Vital Signs: Last Vital Signs Temp 97.7 F 03/25/20 15:30 Pulse 71 03/25/20 15:30 Resp 18 03/25/20 15:30 BP 123/80 03/25/20 15:30 Pulse Ox 100 03/25/20 15:30 Body Mass Index 22.1 Const: General: cooperative and no acute distress Orientation/ consciousness: patient oriented x3 Eyes: General: appearance normal, both eyes and all related structures Pupils: Equal, round and reactive pupils present Resp: Effort & Inspection: normal respiratory effort and able to speak in complete sentences Auscultation: clear to auscultation bilaterally Cardio: Rate: regular rate Rhythm: regular rhythm GI: Palpation (GI): Soft to palpation Auscultation: normal bowel sounds : Other: multiple large hard masses in the left scrotum, mildly tender Skin: General skin exam: no rashes or lesions noted Neuro: General: patient oriented x3 Cranial nerves: Yes Equal, round and reactive pupils present Cognition (Neuro): normal cognition Extrem: Other: limited range of motion of his left knee presence of surgical scar. General: Yes normal to inspection and Yes no pedal edema Objective Data Current Medications Generic Name Dose Route Start Last Admin Trade Name Freq PRN Reason Stop Dose Admin Acetaminophen 650 mg 03/19/20 22:42 03/25/20 08:19 Acetaminophen 325 Mg Tablet PO 650 mg Q6H PRN Administration Pain, Mild (Pain Scale 1-3) Dibucaine 1 appl 03/23/20 20:32 03/25/20 08:19 Dibucaine 1 % Oint 28 Gm Tube TOPICAL 1 appl TID PRN Administration Hemorrhoids Protocol Gabapentin 600 mg 03/20/20 21:00 03/25/20 15:18 Gabapentin 600 Mg Tablet PO 600 mg TID BON Administration Lactated Ringer's 1,000 mls @ 50 mls/hr 03/23/20 13:15 03/25/20 13:15 Lr IVCONT 50 mls/hr .Q20H BON Administration Ondansetron HCl 4 mg 03/19/20 22:42 03/22/20 19:24 Ondansetron Hcl 4 Mg/2 Ml Vial IVPUSH 4 mg Q8H PRN Administration Nausea and Vomiting Polyethylene Glycol 17 gm 03/24/20 11:00 03/25/20 08:12 Polyethylene Glycol 3350 17 Gm Powd.Pack PO 17 gm DAILY BON Administration Sodium Chloride 3 ml 03/20/20 00:00 03/25/20 15:19 0.9 % Sodium Chloride Flush 3 Ml Syringe IVFLUSH Not Given QSHIFT BON Labs CBC & Chem 7: 03/25/20 05:25 03/24/20 08:52 Assessment and Plan (1) GI bleed: Status: Acute (2) Anemia: Status: Acute (3) Mass of left testicle: Status: Acute (4) History of hemorrhoids: Status: Acute (5) Rectal varices: Status: Acute (6) Acute on chronic blood loss anemia: Status: Acute (7) Symptomatic anemia: Status: Acute Assessment and Plan: this is a 59-year-old male with past medical history as mentioned above who presents to the hospital with GI bleed. Acute on chronic blood loss anemia Symptomatic anemia Secondary to GI bleed received 2 units of PRBCs status post colonoscopy on colonoscopy shows venous congestion of 25 cm patient still has bleeding GI recommended General surgery and vascular surgery vascular surgery consult pending monitor H&H closely probably need to transfer to tertiary center Left scrotal mass Ultrasound showing but seems to be loculated hydrocele Urology input appreciated, plan for surgery once GI bleed resolved DVT prophylaxis SCDs
[2020-03-26 03:39] VITALS: BP 105/58; PULSE 59; RESP 18; TEMP 36.6; O2SAT 99
[2020-03-26 06:48] LABS: MANUAL DIFF FLAG NO
[2020-03-26 06:52] LABS: Basophils Percent Auto 0.8 % (0-2); Eosinophils Absolute Auto 0.1 X10*3/uL (0.0-0.4); Eosinophils Percent Auto 1.8 % (0-4); Hematocrit 27.7 % (42-52); Hemoglobin 8.8 g/dl (14.0-18.0); Imm Gran Abs Auto 0.02 X10*3/uL (0.00-0.03); Imm Gran Pct Auto 0.5 % (0.0-0.4); Lymphocytes Absolute Auto 1.3 X10*3/uL (1.2-4.9); Lymphocytes Percent Auto 32.1 % (20-40); Mean Corpuscular HGB Conc 31.8 g/dl (31.0-36.0); Mean Corpuscular Hemoglobin 30.3 pg (27.0-33.0); Mean Corpuscular Volume 95.5 fL (80-98); Mean Platelet Volume 9.6 fL (9.4-12.4); Monocytes Absolute Auto 0.4 X10*3/uL (0.1-1.2); Monocytes Percent Auto 11.1 % (2-11); Neutrophils Absolute Auto 2.1 X10*3/uL (2.0-8.3); Neutrophils Percent Auto 53.7 % (45-73); Platelet Count 225 X10*3/uL (160-400); Red Cell Distribution Width 13.3 % (11.0-16.0); White Blood Count 3.9 X10*3/uL (4.8-10.8)
[2020-03-26 07:44] VITALS: BP 129/57; PULSE 69; RESP 18; TEMP 36.7; O2SAT 100
[2020-03-26] MEDS: Gabapentin 600 MG TABLET PO ×2 (08:13→15:10)
[2020-03-26] MEDS: Lactated Ringers 1,000 ML 50 ML IVCONT (08:16)
[2020-03-26 09:11] LABS: Anion Gap 10 (12-20); Blood Urea Nitrogen 19 mg/dL (9-16); Calcium 8.4 mg/dL (8.4-10.2); Carbon Dioxide 27 mmol/L (22-29); Chloride 108 mmol/L (96-108); Creatinine Clr Calc Pharmacy 105.1; Estimated Glomerular Filt Rate > 60; Glucose Random 89 mg/dL (60-115); Sodium 140 mmol/L (135-145)
--- NOTE | 2020-03-26 09:22 | PM.GIPN ---
Subjective Subjective Date of Service: 03/26/20 Interval History: ate breakfast without difficulty same amount of rectal bleeding per patient Physical Exam Vital Signs: Vital Signs: Last Vital Signs Temp 98.0 F 03/26/20 07:44 Pulse 69 03/26/20 07:44 Resp 18 03/26/20 07:44 BP 129/57 L 03/26/20 07:44 Pulse Ox 100 03/26/20 07:44 Body Mass Index 22.1 Const: General: cooperative, alert and awake Resp: Other: clear Skin: General skin exam: no rashes or lesions noted Extrem: General: Yes no clubbing, cyanosis or edema Objective Data Labs CBC & Chem 7: 03/26/20 05:49 03/26/20 06:00 Labs: Laboratory Results - last 24 hr 03/19/20 03/26/20 03/26/20 18:09 05:49 06:00 WBC 3.9 L RBC 2.90 L Hgb 8.8 L Hct 27.7 L MCV 95.5 MCH 30.3 MCHC 31.8 RDW 13.3 Plt Count 225 MPV 9.6 Immature Gran % (Auto) 0.5 H Neut % (Auto) 53.7 Lymph % (Auto) 32.1 [place] % (Auto) 11.1 H Eos % (Auto) 1.8 Baso % (Auto) 0.8 Lymph # (Auto) 1.3 [place] # (Auto) 0.4 Eos # (Auto) 0.1 Baso # (Auto) 0.0 Abs Immat Gran (auto) 0.02 Absolute Neuts (auto) 2.1 Absolute Nucleated RBC 0.000 Nucleated RBC % (auto) 0.0 Sodium 140 Potassium 5.0 Chloride 108 Carbon Dioxide 27 Anion Gap 10 L BUN 19 H Creatinine 0.71 Estim Creat Clear Calc 105.1 Estimated GFR > 60 Random Glucose 89 Calcium 8.4 Crossmatch See Detail Crossmatch (AHG) See Detail Progress Note: A&P Assessment and plan (1) GI bleed: Status: Acute Assessment and Plan: hematocrit stable no further recommendations at this time Fall Risk Details Current Medications: Current Medications Generic Name Dose Route Start Last Admin Trade Name Freq PRN Reason Stop Dose Admin Acetaminophen 650 mg 03/19/20 22:42 03/25/20 08:19 Acetaminophen 325 Mg Tablet PO 650 mg Q6H PRN Administration Pain, Mild (Pain Scale 1-3) Dibucaine 1 appl 03/23/20 20:32 03/25/20 08:19 Dibucaine 1 % Oint 28 Gm Tube TOPICAL 1 appl TID PRN Administration Hemorrhoids Protocol Gabapentin 600 mg 03/20/20 21:00 03/26/20 08:13 Gabapentin 600 Mg Tablet PO 600 mg TID BON Administration Lactated Ringer's 1,000 mls @ 50 mls/hr 03/23/20 13:15 03/26/20 08:16 Lr IVCONT 50 mls/hr .Q20H BON Administration Ondansetron HCl 4 mg 03/19/20 22:42 03/22/20 19:24 Ondansetron Hcl 4 Mg/2 Ml Vial IVPUSH 4 mg Q8H PRN Administration Nausea and Vomiting Polyethylene Glycol 17 gm 03/24/20 11:00 03/26/20 08:14 Polyethylene Glycol 3350 17 Gm Powd.Pack PO Not Given DAILY BON Sodium Chloride 3 ml 03/20/20 00:00 03/26/20 08:13 0.9 % Sodium Chloride Flush 3 Ml Syringe IVFLUSH Not Given QSHIFT BON Time Spent With Patient Time: Total time spent is greater than 50% in coordination of care (as documented) at patient's floor/unit and/or counseling patient: Time with patient: less than 15 minutes
[2020-03-26 11:07] VITALS: BP 100/62; PULSE 69; RESP 18; TEMP 36.5; O2SAT 99
[2020-03-26 13:13] LABS: COVID-19 Test Negative (Negative); IDNOW Serial# 9DD0AD1C
--- NOTE | 2020-03-26 13:19 | P.DS_ITS ---
DS: Providers Provider Date of admission: 03/19/20 19:43 Primary care physician: Raciel Chua MD Consults: 03/19/20 20:36 Consult to Urology Routine Consulting Provider: Filipe Mcclendon Reason for consultation: testicular mass Has provider been notified: No 03/19/20 22:42 Consult to Gastroenterology Routine Consulting Provider: Chandra Mercado Reason for consultation: GI bleed Has provider been notified: No 03/23/20 14:17 Consult to General Surgery Routine Consulting Provider: Robert Bruno Reason for consultation: rectosigmoid venous congestion Has provider been notified: No 03/24/20 14:20 Consult to Vascular Surgery Routine Consulting Provider: Anibal Beavers Reason for consultation: rectal varices Has provider been notified: No 03/24/20 14:57 Consult to Vascular Surgery Routine Consulting Provider: Anibal Beavers Reason for consultation: lower gi bleed , rectal venous congestion DS: Diagnosis Discharge Diagnosis (1) GI bleed: Status: Acute DS: Medications Discharge Medications Home Medications: Home Medications Medication Instructions Recorded Confirmed gabapentin 600 mg PO TID 03/20/20 03/20/20 naproxen sodium 550 mg PO BID 03/20/20 03/20/20 DS: Summary Hospital Course Hospital Course: HPI from admision note 59-year-old male with past medical history of GI bleed, and rectosigmoid varices,who presents to the hospital with complaints of bleeding per rectum. Patient reports that he started bleeding about 3 weeks ago, has progressively gotten worse, with 3 episodes of watery bloody BMs each day. Patient reports that has gone to the point where he is bleeding without even having bowel movements. , he started wearing pads to avoid blood getting on his clothes. He delayed coming to the hospital because he thought it would go away. He has a history of hemorrhoids status post hemorrhoidectomy, with few more episodes of GI bleeding most recent in 2017. Patient reports no nausea or vomiting, no abdominal pain. Reports shortness of breath with exertion for the past few days as well as generalized weakness where he is now unable to move around without getting short of breath and feeling weak. He has a headache behind his eyes, no change in vision, no dizziness,, no urinary symptoms and extremity edema. No cough, no chest pain. patient has also been complaining of a mass that is growing over the past few years in his left scrotum, with no difficulty urinating, no difficulty with erection or sexual function. he reports that his scrotum is becoming progressively more painful over the past few months. On arrival to the ED hemodynamically stable with no significant abnormal vitals labs are significant for WBC count of 4.4, hemoglobin of 8 with hematocrit of the 24.2 ( hemoglobin of 12.4 on 06/2017), otherwise unremarkable Hospital course 60-year-old male admitted with lower GI bleed for last 2-3 weeks, and acute on chronic anemia secondary to lower GI bleed, patient received 2 units of PRBCs, gastroenterology was consulted, patient underwent colonoscopy, colonoscopy shows Rectal and sigmoid venous congestion and Probable rectal varices. patient reported he drinks few beers for last few days, but no signs of cirrhosis was found, CT abdomen shows no l liver abnormailty , no portal hypertention was found , LFTS and PT INR was normal , cirrhosis was ruled out , GI recommended general surgery and vascular surgery consult given patient continues to bleed, CTA abdomen was done shows circumferential thickening from sigmoid to mid rectum, vascular surgery recommended no intervention, patient continues to have lower GI bleed, Gastroenterology and General surgery recommended transferring patient to tertiary center for colorectal surgeon opinion, [facility] was contacted patient was accepted by surgery at [facility], rapid COVID test was done on discharge was negative, patient was transferred to [facility] under surgery service for further management, Colonoscopy findings done on 03/23/20 FINDINGS: The terminal ileum was not examined. The visualized colonic mucosa from the cecum to about 20 to 25 cm was normal, where there was an abrupt transition to abnormal mucosa, which showed venous congestion and loss of normal vascular pattern from 0 to 25 cm. There appeared to be probable varicosities in this area. Retroflexed examination showed internal hemorrhoids. The mucosa showed vascular congestion. There was some oozing, but no definite site of bleeding that could be treated endoscopically. Because of the vascular congestion, no biopsies were obtained. IMPRESSION: Rectal and sigmoid venous congestion. Probable rectal varices. Time Spent with Patient Time attestation: Total time spent providing and/or coordinating discharge services: Physical Exam Vital Signs: Vital Signs: Last Vital Signs Temp 97.7 F 03/26/20 11:07 Pulse 69 03/26/20 11:07 Resp 18 03/26/20 11:07 BP 100/62 03/26/20 11:07 Pulse Ox 99 03/26/20 11:07 Body Mass Index 22.1 Const: General: cooperative and no acute distress Orientation/consciousness: patient oriented x3 Resp: Effort & Inspection: normal respiratory effort and able to speak in complete sentences Auscultation: clear to auscultation bilaterally Cardio: Rate: regular rate Rhythm: regular rhythm GI: Palpation (GI): Soft to palpation Auscultation: normal bowel sounds : Other: multiple large hard masses in the left scrotum, mildly tender Skin: General skin exam: no rashes or lesions noted Neuro: General: patient oriented x3 Cognition (Neuro): normal cognition Extrem: Other: limited range of motion of his left knee presence of surgical scar. General: Yes normal to inspection and Yes no pedal edema DS: Data Data Completed and Pending Labs on day of discharge: 03/19/20 17:23 Basic Metabolic Panel Stat Complete Blood Count Auto Diff Stat Ethanol Stat Liver Panel Stat Prothrombin Time INR Stat 03/19/20 18:09 Antibody Identification Stat Antigen Identification Stat Red Blood Cells Stat Type and Screen Stat 03/19/20 Dinner NPO Diet 03/19/20 19:35 Transfer Order Routine 03/19/20 22:42 0.9 % Sodium Chloride [Ns] 1,000 ml IVCONT 100 mls/hr 03/19/20 23:27 UA CC w/rflx Micro + Cult Stat 03/20/20 US scrotum Routine 03/20/20 04:46 Basic Metabolic Panel Routine Complete Blood Count Auto Diff Routine SLIDE REVIEW Routine 03/20/20 17:33 Complete Blood Count no Diff Urgent 03/21/20 06:27 Basic Metabolic Panel DAILY@0600 Complete Blood Count no Diff DAILY@0600 03/21/20 13:00 PEG 3350/Na Sulf,Bicarb,Cl/KCL [Gavilyte-C Solution] 4,000 ml PO ONCE ONE 03/22/20 06:40 Basic Metabolic Panel DAILY@0600 Complete Blood Count no Diff DAILY@0600 03/22/20 Breakfast Clear Liquid Diet 03/22/20 13:15 PEG 3350/Na Sulf,Bicarb,Cl/KCL [Gavilyte-C Solution] 4,000 ml PO ONCE ONE 03/23/20 05:43 Complete Blood Count no Diff DAILY@0600 03/23/20 13:15 Lactated Ringers [Lr] 1,000 ml IVCONT 50 mls/hr 03/23/20 13:19 propofoL [Diprivan] 200 mg IVPUSH .STK-MED ONE 03/23/20 13:26 Antibody Identification Stat Type and Screen Stat 03/23/20 14:19 Transfer Order Routine 03/24/20 CT angio abdomen pelvis Routine 03/24/20 08:52 Basic Metabolic Panel Routine Complete Blood Count Auto Diff Routine 03/24/20 16:34 iohexoL 350 MG/ML [Omnipaque 350 MG/ML] 85 ml IV ONCE ONE 03/24/20 23:35 0.9 % Sodium Chloride [Ns] 1,000 ml IVCONT 999 mls/hr 03/25/20 05:25 Complete Blood Count Auto Diff DAILY@0600 03/26/20 05:49 Complete Blood Count Auto Diff DAILY@0600 03/26/20 06:00 Basic Metabolic Panel Routine 03/26/20 12:05 COVID-19 ID NOW (Lin) Stat Laboratory Last Values WBC 3.9 X10*3/uL (4.8-10.8) L 03/26/20 05:49 RBC 2.90 X10*6/uL (4.60-5.80) L 03/26/20 05:49 Hgb 8.8 g/dl (14.0-18.0) L 03/26/20 05:49 Hct 27.7 % (42-52) L 03/26/20 05:49 MCV 95.5 fL (80-98) 03/26/20 05:49 MCH 30.3 pg (27.0-33.0) 03/26/20 05:49 MCHC 31.8 g/dl (31.0-36.0) 03/26/20 05:49 RDW 13.3 % (11.0-16.0) 03/26/20 05:49 Plt Count 225 X10*3/uL (160-400) 03/26/20 05:49 MPV 9.6 fL (9.4-12.4) 03/26/20 05:49 Immature Gran % (Auto) 0.5 % (0.0-0.4) H 03/26/20 05:49 Neut % (Auto) 53.7 % (45-73) 03/26/20 05:49 Lymph % (Auto) 32.1 % (20-40) 03/26/20 05:49 [place] % (Auto) 11.1 % (2-11) H 03/26/20 05:49 Eos % (Auto) 1.8 % (0-4) 03/26/20 05:49 Baso % (Auto) 0.8 % (0-2) 03/26/20 05:49 Lymph # (Auto) 1.3 X10*3/uL (1.2-4.9) 03/26/20 05:49 [place] # (Auto) 0.4 X10*3/uL (0.1-1.2) 03/26/20 05:49 Eos # (Auto) 0.1 X10*3/uL (0.0-0.4) 03/26/20 05:49 Baso # (Auto) 0.0 X10*3/uL (0.0-0.2) 03/26/20 05:49 Abs Immat Gran (auto) 0.02 X10*3/uL (0.00-0.03) 03/26/20 05:49 Absolute Neuts (auto) 2.1 X10*3/uL (2.0-8.3) 03/26/20 05:49 Absolute Nucleated RBC 0.000 X10*3/uL (0.0-0.012) 03/26/20 05:49 Nucleated RBC % (auto) 0.0 /100WBC (0.0-0.2) 03/26/20 05:49 Smear Tech's Comments VERIFIED 03/20/20 04:46 PT 10.3 SEC (10.8-13.0) L 03/19/20 17:23 INR 0.9 (0.9-1.1) 03/19/20 17:23 Sodium 140 mmol/L (135-145) 03/26/20 06:00 Potassium 5.0 mmol/l (3.3-5.1) 03/26/20 06:00 Chloride 108 mmol/L (96-108) 03/26/20 06:00 Carbon Dioxide 27 mmol/L (22-29) 03/26/20 06:00 Anion Gap 10 (12-20) L 03/26/20 06:00 BUN 19 mg/dL (9-16) H 03/26/20 06:00 Creatinine 0.71 mg/dL (0.5-1.4) 03/26/20 06:00 Estim Creat Clear Calc 105.1 03/26/20 06:00 Estimated GFR > 60 03/26/20 06:00 Random Glucose 89 mg/dL (60-115) 03/26/20 06:00 Calcium 8.4 mg/dL (8.4-10.2) 03/26/20 06:00 Total Bilirubin 0.3 mg/dL (0.0-1.0) 03/19/20 17:23 Direct Bilirubin < 0.2 mg/dL (0.0-0.5) 03/19/20 17:23 AST 24 U/L (5-37) 03/19/20 17:23 ALT 12 U/L (0-40) 03/19/20 17:23 Alkaline Phosphatase 45 U/L (39-117) 03/19/20 17:23 Total Protein 5.6 g/dL (6.5-8.0) L 03/19/20 17:23 Albumin 3.6 g/dL (3.5-5.0) 03/19/20 17:23 Urine Color YELLOW 03/19/20 23:27 Urine Appearance CLEAR 03/19/20 23:27 Urine pH 7.0 (5.0-8.0) 03/19/20 23:27 Ur Specific [place] 1.015 (1.005-1.025) 03/19/20 23:27 Urine Protein NEG MG/DL (NEG-TRACE) 03/19/20 23:27 Urine Glucose (UA) NEG MG/DL (NEG) 03/19/20 23:27 Urine Ketones NEG MG/DL (NEG) 03/19/20 23:27 Urine Blood NEG (NEG) 03/19/20 23:27 Urine Nitrite NEG (NEG) 03/19/20 23:27 Ur Leukocyte Esterase NEG (NEG) 03/19/20 23:27 Ethyl Alcohol 11 mg/dL 03/19/20 17:23 COVID-19 ([facility]) Negative (Negative) 03/26/20 12:05 COVID-19 Clin Com See Note 03/26/20 12:05 Blood Type A Positive 03/23/20 13:26 Antibody Screen POSITIVE 03/23/20 13:26 Antibody Identification Inconclusive Anti-K 03/23/20 13:26 Antibody Identification Inconclusive Anti-K 03/23/20 13:26 Antigen Identification K Antigen - NEGATIVE 03/19/20 18:09 Crossmatch See Detail 03/19/20 18:09 Crossmatch (AHG) See Detail 03/23/20 13:26 CTA abdomen and pelvis 1. Chronic circumferential thickening from mid sigmoid in continuity through the rectum, similar to prior CT 11/10/2016. No abnormal enhancement, acute intraluminal hemorrhage, or proximal obstruction. No acute perinephric rectal inflammatory changes, ascites, or fluid collection. 2. If clinically indicated, further assessment for occult GI bleed could be performed with radionuclide bleeding scan. Colonoscopy findings done on 03/23/20 FINDINGS: The terminal ileum was not examined. The visualized colonic mucosa from the cecum to about 20 to 25 cm was normal, where there was an abrupt transition to abnormal mucosa, which showed venous congestion and loss of normal vascular pattern from 0 to 25 cm. There appeared to be probable varicosities in this area. Retroflexed examination showed internal hemorrhoids. The mucosa showed vascular congestion. There was some oozing, but no definite site of bleeding that could be treated endoscopically. Because of the vascular congestion, no biopsies were obtained. IMPRESSION: Rectal and sigmoid venous congestion. Probable rectal varices. Discharge Plan Discharge Anticipated Discharge Date/Time: 03/26/20 13:20 Patient Disposition: Xfer Critical Access Hosp Referrals: [facility] [Outside] (FACILITY FOLLOWING FOR SHORT TERM PLACEMENT FOLLOWING HOSPITALIZATION ) Raciel Chua MD [Primary Care Provider] - Discharge Medications: New polyethylene glycol 3350 17 gram Powder In Packet 17 g PO DAILY Qty: 20 RF: 0 dibucaine 1 % Ointment 1 appl topical TID PRN (Reason: Hemorrhoids) Qty: 1 RF: 0 Continued gabapentin 600 mg Tablet 600 mg PO TID RF: 0 Discontinued naproxen sodium 550 mg Tablet 550 mg PO BID RF: 0 Discharge Orders: Discharge Order (Routine); Ordered 03/26/20 Ordered By: Alvarez Cuellar Diet: advance to usual diet Activity on Discharge: As tolerated Discharge Date/Time: 03/26/20 16:07 Visit Report Forms: Patient Portal Discharge page Care Plan Goals: resolve bleeding Health Concerns: gi bleed Plan of Treatment: transfer to tertiary centre
--- NOTE | 2020-03-26 13:25 | MHC.CM.PN ---
Patient is being transferred to [facility] today.
== END 2020-03-26 16:07 | disposition critical access hospital (66) | DRG 197 ==
LOC: HO.ED 19:51 → HO.IMC 20:00
PROVIDERS: Internal Medicine Gastroenterology; Student in an Organized Health Care Education/Training Program; Admitting Provider Internal Medicine; Emergency Provider Emergency Medicine; PCP Internal Medicine; Visit Provider Internal Medicine
PROC: 0DJD8ZZ Inspection of Lower Intestinal Tract, Via Natural or Artificial Opening Endoscopic (ICD-10-PCS; CPT 45378; principal; 2020-03-23 12:50)
DX: I86.8 Varicose veins of other specified sites (principal); D62 Acute posthemorrhagic anemia; K92.2 Gastrointestinal hemorrhage, unspecified; F10.10 Alcohol abuse, uncomplicated; I87.8 Other specified disorders of veins; Z20.828 Contact with and (suspected) exposure to other viral communicable diseases; N43.3 Hydrocele, unspecified; Z96.651 Presence of right artificial knee joint; Z79.899 Other long term (current) drug therapy
CPT/HCPCS: 36415; 36430; 74174; 76870; 80048; 80076; 80320; 81003; 85025; 85027; 85610; 86850; 86870; 86885; 86900; 86901; 86902; 86905; 86920; 86922; 87635; 99285; 99291; J2405; P9016; Q9967

== ENCOUNTER 2020-04-14 23:41 | Emergency (ER) | payer MEDICAID, SELFPAY ==
[2020-04-14 23:57] VITALS: BP 119/71; PULSE 77; RESP 18; TEMP 36.7; O2SAT 99; BMI 22.1
--- NOTE | 2020-04-16 10:50 | PC.NURSE ---
Addendum entered by Fernando Varghese 04/16/20 11:24: Pt verbalized repeatedly I don't want to see a doctor, I don't even know why I was brought here. Pt alert and oriented x3. Original Note: Addendum-Late entry for 04/15/20 at 0115. This rn witnessed patient in waiting room expose his genitalia and approaching other patient. This rn intervened with assistance from security. pt assisted to chair and this rn ran to obtain blanket for patient. When patient was calmly questioned as to why he was behaving like that in the waiting room he then made many vulgar statements while cursing. Patient then stood up and became aggressive verbally with his genitalia still exposed. This rn grabbed patient wrists gently and calmly and sat patient back down. The rn asked patient multiple times if he would like to see a doctor. Pt refused and continued to curse towards security and this rn. Security then escorted patient out of the waiting room.
== END 2020-04-15 02:12 | disposition left against medical advice (07) ==
PROVIDERS: Emergency Provider Internal Medicine
DX: R10.9 Unspecified abdominal pain (principal); K64.9 Unspecified hemorrhoids; F10.10 Alcohol abuse, uncomplicated
CPT/HCPCS: 99283

== ENCOUNTER 2021-09-20 18:53 | Inpatient (IN) | payer MEDICAID, OTHER, SELFPAY ==
[2021-09-20 19:02] VITALS: BP 109/81; BP 144/91; PULSE 80; PULSE 87; RESP 16; TEMP 37.2; O2SAT 95; BMI 22.1
--- NOTE | 2021-09-20 19:21 | ED.PSYCH ---
HPI - Psych General Chief Complaint: Psychiatric Symptoms Stated Complaint: Crisis Time Seen by Provider: 09/20/21 19:18 History of Present Illness HPI Narrative: Patient is 61-year-old male with positive ETOH, noted by PD to be suicidal. Threatening neighbors that he might burn down the house. Patient sent in for further evaluation. At the current time patient denies having thoughts of suicidal ideation. Admits to drinking alcohol. Admit to using marijuana. No fever no chills no cough no congestion or upper respiratory symptoms no systemic complaints. Related Data Home Medications Medication Instructions Recorded Confirmed gabapentin 600 mg tablet 600 mg PO TID 03/20/20 03/20/20 Previous Rx's Medication Instructions Recorded dibucaine 1 % topical ointment 1 appl TOPICAL TID PRN #1 g 03/26/20 polyethylene glycol 3350 17 gram 17 g PO DAILY #20 ea 03/26/20 oral powder packet Allergies Allergy/AdvReac Type Severity Reaction Status Date / Time No Known Allergies Allergy Verified 03/19/20 19:39 [No Known Allergies*] Review of Systems Review of Systems: No chest pain or shortness of breath Yes all other systems are reviewed and are negative PMFSH Past Medical History Attestation statement: The following information was validated with the patient. Medical History Acute hemorrhoid Alcohol abuse GI bleed Surgical History H/O hemorrhoidectomy Hx of hernia repair Hx of total knee replacement Social History Social History Household Members: None Housing: Homeless Housing Other:: lived in a camping trailer, now homeless at this time Do you presently have visiting nurse or other home services: No Alcohol intake: current Alcohol intake frequency: 3 or more drinks per day Alcohol type: beer Substance Use Type: Marijuana Advance Directives: No Advance Directives Information Provided: No service: No Current occupational status: disabled Physical Exam Vital Signs: Vital Signs: Last Vital Signs Temp 98.5 F 09/20/21 19:38 Pulse 73 09/20/21 19:38 Resp 16 09/20/21 19:02 BP 113/72 09/20/21 19:38 Pulse Ox 95 09/20/21 19:38 BMI result Body Mass Index 22.1 Appearance: Alert. Oriented X3. No acute distress. Eyes: Pupils equal, round and reactive to light. ENT: Pharynx normal. Neck: Normal inspection. Neck supple. No lymph nodes noted. No crepitus CVS: Normal heart rate and rhythm. Pulses normal. Normal S1 and S2 Respiratory: No respiratory distress. Breath sounds normal. No Wheezing. No rales Abdomen: Soft and nontender. No rigidity. No distention. good BS x4 Skin: Skin warm and dry. Normal skin color. Normal skin turgor. Extremities: No lower extremity edema. Neurovascular intact to all extremities. No Lacerations. No Rash Neuro: Oriented X 3. No motor deficit. No sensory deficit. Moving all extermities. No slurred speech. Cranial nerves grossly intact MDM - Psych MDM Narrative Medical decision making narrative: Will get crisis to evaluate patient. Baseline labs ordered. Patient in stable condition. Patient evaluated by crisis. Going to respite. In stable condition. Patient feel comfortable plan. Lab Data Result diagrams: 09/20/21 20:05 09/20/21 20:05 Labs: Lab Results 09/20/21 09/20/21 09/20/21 Range/Units 20:05 20:05 20:05 WBC 3.4 L (4.8-10.8) X10*3/uL RBC 3.96 L (4.60-5.80) X10*6/uL Hgb 12.8 L (14.0-18.0) g/dl Hct 38.1 L (42.0-52.0) % MCV 96.2 (80.0-98.0) fL MCH 32.3 (27.0-33.0) pg MCHC 33.6 (31.0-36.0) g/dl RDW 14.6 (11.0-16.0) % Plt Count 173 (160-400) X10*3/uL MPV 9.3 L (9.4-12.4) fL Immature Gran % (Auto) 0.6 H (0.0-0.4) % Neut % (Auto) 53.6 (45-73) % Lymph % (Auto) 34.6 (20-40) % [place] % (Auto) 8.2 (2-11) % Eos % (Auto) 1.5 (0-4) % Baso % (Auto) 1.5 (0-2) % Lymph # (Auto) 1.2 (1.2-4.9) X10*3/uL [place] # (Auto) 0.3 (0.1-1.2) X10*3/uL Eos # (Auto) 0.1 (0.0-0.4) X10*3/uL Baso # (Auto) 0.1 (0.0-0.2) X10*3/uL Abs Immat Gran (auto) 0.02 (0.00-0.03) X10*3/uL Absolute Neuts (auto) 1.8 L (2.0-8.3) x10*3/uL Absolute Nucleated RBC 0.000 (0.0-0.012) X10*3/uL Nucleated RBC % (auto) 0.0 (0.0-0.2) /100WBC Sodium 143 (135-145) mmol/L Potassium 4.4 (3.3-5.1) mmol/L Chloride 110 H (96-108) mmol/L Carbon Dioxide 23 (22-29) mmol/L Anion Gap 14 (12-20) BUN 14 (9-16) mg/dL Creatinine 0.80 (0.5-1.4) mg/dL Estim Creat Clear Calc 92.1 Estimated GFR > 60 Random Glucose 91 (60-115) mg/dL Calcium 8.9 (8.4-10.2) mg/dL Total Bilirubin 0.8 (0.0-1.0) mg/dL AST 62 H (5-37) U/L ALT 29 (0-40) U/L Alkaline Phosphatase 67 D (39-117) U/L Total Protein 6.3 L (6.5-8.0) g/dL Albumin 3.6 (3.5-5.0) g/dL Urine Opiates Screen (Not Detect) Urine Fentanyl Screen (Not Detect) Ur Barbiturates Screen (Not Detect) Ur Phencyclidine Scrn (Not Detect) Ur Amphetamines Screen (Not Detect) U Benzodiazepines Scrn (Not Detect) Urine Cocaine Screen (Not Detect) U Marijuana (THC) Screen (Not Detect) Ethyl Alcohol mg/dL COVID-19 ([facility]) Negative (Negative) COVID-19 Clin Com See Note 09/20/21 09/20/21 Range/Units 20:05 20:45 WBC (4.8-10.8) X10*3/uL RBC (4.60-5.80) X10*6/uL Hgb (14.0-18.0) g/dl Hct (42.0-52.0) % MCV (80.0-98.0) fL MCH (27.0-33.0) pg MCHC (31.0-36.0) g/dl RDW (11.0-16.0) % Plt Count (160-400) X10*3/uL MPV (9.4-12.4) fL Immature Gran % (Auto) (0.0-0.4) % Neut % (Auto) (45-73) % Lymph % (Auto) (20-40) % [place] % (Auto) (2-11) % Eos % (Auto) (0-4) % Baso % (Auto) (0-2) % Lymph # (Auto) (1.2-4.9) X10*3/uL [place] # (Auto) (0.1-1.2) X10*3/uL Eos # (Auto) (0.0-0.4) X10*3/uL Baso # (Auto) (0.0-0.2) X10*3/uL Abs Immat Gran (auto) (0.00-0.03) X10*3/uL Absolute Neuts (auto) (2.0-8.3) x10*3/uL Absolute Nucleated RBC (0.0-0.012) X10*3/uL Nucleated RBC % (auto) (0.0-0.2) /100WBC Sodium (135-145) mmol/L Potassium (3.3-5.1) mmol/L Chloride (96-108) mmol/L Carbon Dioxide (22-29) mmol/L Anion Gap (12-20) BUN (9-16) mg/dL Creatinine (0.5-1.4) mg/dL Estim Creat Clear Calc Estimated GFR Random Glucose (60-115) mg/dL Calcium (8.4-10.2) mg/dL Total Bilirubin (0.0-1.0) mg/dL AST (5-37) U/L ALT (0-40) U/L Alkaline Phosphatase (39-117) U/L Total Protein (6.5-8.0) g/dL Albumin (3.5-5.0) g/dL Urine Opiates Screen Not Detected (Not Detect) Urine Fentanyl Screen Not Detected (Not Detect) Ur Barbiturates Screen Not Detected (Not Detect) Ur Phencyclidine Scrn Not Detected (Not Detect) Ur Amphetamines Screen Not Detected (Not Detect) U Benzodiazepines Scrn Not Detected (Not Detect) Urine Cocaine Screen Not Detected (Not Detect) U Marijuana (THC) Screen POSITIVE H (Not Detect) Ethyl Alcohol 219 mg/dL COVID-19 ([facility]) (Negative) COVID-19 Clin Com Discharge Plan Discharge Clinical Impression: Depression Patient Disposition: Home, Self-Care Instructions: Depression (ED) Prescriptions: No Action gabapentin 600 mg Tablet 600 mg PO TID 0RF polyethylene glycol 3350 17 gram Powder In Packet 17 g PO DAILY Qty: 20 0RF dibucaine 1 % Ointment 1 appl topical TID PRN (Reason: Hemorrhoids) Qty: 1 0RF Protocol: Apply to: Apply to: perirectal area Referrals: Raciel Chua MD [Primary Care Provider] - (Please go to rest bed now)
[2021-09-20 19:38] VITALS: BP 113/72; PULSE 73; TEMP 36.9; O2SAT 95
[2021-09-20 20:13] LABS: MANUAL DIFF FLAG NO
[2021-09-20 20:16] LABS: Basophils Absolute Auto 0.1 X10*3/uL (0.0-0.2); Basophils Percent Auto 1.5 % (0-2); Eosinophils Absolute Auto 0.1 X10*3/uL (0.0-0.4); Eosinophils Percent Auto 1.5 % (0-4); Hematocrit 38.1 % (42.0-52.0); Hemoglobin 12.8 g/dl (14.0-18.0); Imm Gran Abs Auto 0.02 X10*3/uL (0.00-0.03); Imm Gran Pct Auto 0.6 % (0.0-0.4); Lymphocytes Absolute Auto 1.2 X10*3/uL (1.2-4.9); Lymphocytes Percent Auto 34.6 % (20-40); Mean Corpuscular HGB Conc 33.6 g/dl (31.0-36.0); Mean Corpuscular Hemoglobin 32.3 pg (27.0-33.0); Mean Corpuscular Volume 96.2 fL (80.0-98.0); Mean Platelet Volume 9.3 fL (9.4-12.4); Monocytes Absolute Auto 0.3 X10*3/uL (0.1-1.2); Monocytes Percent Auto 8.2 % (2-11); Neutrophils Absolute Auto 1.8 x10*3/uL (2.0-8.3); Neutrophils Percent Auto 53.6 % (45-73); Platelet Count 173 X10*3/uL (160-400); Red Blood Count 3.96 X10*6/uL (4.60-5.80); Red Cell Distribution Width 14.6 % (11.0-16.0); White Blood Count 3.4 X10*3/uL (4.8-10.8)
[2021-09-20 20:29] LABS: COVID-19 Test Negative (Negative)
[2021-09-20 20:31] LABS: Ethanol 219 mg/dL
[2021-09-20 20:34] LABS: Alanine Aminotransferase 29 U/L (0-40); Albumin Level 3.6 g/dL (3.5-5.0); Alkaline Phosphatase 67 U/L (39-117); Anion Gap 14 (12-20); Aspartate Amino Transferase 62 U/L (5-37); Bilirubin Total 0.8 mg/dL (0.0-1.0); Blood Urea Nitrogen 14 mg/dL (9-16); Calcium 8.9 mg/dL (8.4-10.2); Carbon Dioxide 23 mmol/L (22-29); Chloride 110 mmol/L (96-108); Creatinine Clr Calc Pharmacy 92.1; Estimated Glomerular Filt Rate > 60; Glucose Random 91 mg/dL (60-115); Potassium 4.4 mmol/L (3.3-5.1); Sodium 143 mmol/L (135-145); Total Protein 6.3 g/dL (6.5-8.0)
[2021-09-20 21:07] LABS: Amphetamine Screen Urine Not Detected (Not Detect); Barbiturates, Urine Not Detected (Not Detect); Benzodiazepines Screen Urine Not Detected (Not Detect); Cannabinoid Screen Urine POSITIVE (Not Detect); Cocaine Screen Urine Not Detected (Not Detect); Fentanyl, urine Not Detected (Not Detect); Opiate Screen Urine Not Detected (Not Detect); Phencyclidine Screen Urine Not Detected (Not Detect)
[2021-09-20 23:06] VITALS: BP 122/77; PULSE 72; TEMP 36.9; O2SAT 96
--- NOTE | 2021-09-20 23:57 | PC.NURSE ---
[facility] referral completed with Ashok.
[2021-09-21 05:40] VITALS: BP 119/77; PULSE 59; RESP 16; TEMP 36.7; O2SAT 97
[2021-09-21 08:04] VITALS: BP 122/83; PULSE 62; RESP 18; TEMP 36.6; O2SAT 99
[2021-09-21] MEDS: Acetaminophen 325 MG TABLET 650 MG PO (11:24)
--- NOTE | 2021-09-21 11:32 | PC.NURSE ---
Pt is alert/oriented, reports ongoing depression secondary to chronic right knee pain/back pain causing inability to work and make money. when asked about SI pt denies but states approx 5 years ago had an SI attempt. Pt does states i know how i would do it and states i hope i go before the age of 69 but directly denies SI. Reports chronic right knee pain, Tylenol given as charted. Admits to ETOH recently, last drink yesterday.
[2021-09-21] MEDS: Gabapentin 600 MG TABLET PO (17:32)
--- NOTE | 2021-09-21 17:33 | PC.NURSE ---
pt a&ox3, c/o 10 chronic pain in right knee/back. spoke w provider. medicated per provider order. ciwa = 0.
--- NOTE | 2021-09-21 19:26 | MHC.CARE ---
Pt has been accepted for admission to for 09/21. Authorization:[id number] approved by Mallory Muller for 3 days.
[2021-09-21 20:57] VITALS: BP 136/95; PULSE 61; RESP 15; TEMP 36; O2SAT 98
[2021-09-21 21:45] VITALS: BP 124/81; PULSE 70; TEMP 37.2; O2SAT 96
--- NOTE | 2021-09-22 02:30 | PC.ADMIT ---
Patient is a 61 year old Salvadorean speaking single male admitted as a CV admission to at 2125 09/21/21 and placed on 15 minute safety checks. Patient was brought via wheelchair from the main ED, where he was medically cleared, evaluated by the CARE team and deemed in need of IPLOC secondary to voicing suicidal ideation with a plan. Patient apparently got into an argument with his neighbor and the police were called. At that time the patient voiced his SI with a plan to turn on his propane heater in his camper as a means of suicide. While in the ED patient was calm and cooperative. Patient reported that he was only recently drinking although he said he had had a drinking problem in the past. He denied any previous psychiatric treatment and any type of substance abuse treatment. He is not known to have any mental health providers or treatment. Patient was too tired to sign legals or releases. He did report that he was feeling safe and did not have any SI, HI, AH or VH and denied any alcohol withdrawals. call center support consultant provider was notified of his admission and orders were received. Patient asleep at change of shift.
[2021-09-22 07:04] VITALS: BP 129/94; PULSE 65; RESP 18; TEMP 37.6; O2SAT 97
[2021-09-22] MEDS: Acetaminophen 325 MG TABLET 650 MG PO ×2 (08:36→20:00)
[2021-09-22 10:22] LABS: Estimated Average Glucose 94 mg/dL; Hemoglobin A1c % 4.9 %
[2021-09-22 10:27] LABS: Alanine Aminotransferase 30 U/L (0-40); Albumin Level 4.1 g/dL (3.5-5.0); Alkaline Phosphatase 80 U/L (39-117); Anion Gap 14 (12-20); Aspartate Amino Transferase 43 U/L (5-37); Bilirubin Total 2.6 mg/dL (0.0-1.0); Blood Urea Nitrogen 15 mg/dL (9-16); Calcium 10.2 mg/dL (8.4-10.2); Carbon Dioxide 26 mmol/L (22-29); Chloride 101 mmol/L (96-108); Cholesterol 162 mg/dL; Creatinine Clr Calc Pharmacy 90.9; Estimated Glomerular Filt Rate > 60; Glucose Fasting 89 mg/dL (60-99); HDL Cholesterol 93 mg/dL; LDL Cholesterol Calculated 53 mg/dl; Potassium 5.2 mmol/L (3.3-5.1); Sodium 136 mmol/L (135-145); Total Protein 7.3 g/dL (6.5-8.0); Triglycerides 84 mg/dL
[2021-09-22 10:32] LABS: Free T4 (Free Thyroxine) 0.99 ng/dL (0.71-1.85)
[2021-09-22 10:47] LABS: Folate 7.8 ng/mL (> or = 4.0); Vitamin B12 193 pg/mL (200-900)
--- NOTE | 2021-09-22 14:28 | HO.PSYADMNOT ---
HPI Date of Service: 09/22/21 Chief Complaint: SI Sources of Information: patient interviewed, chart reviewed and crisis/core team assessment reviewed HPI Subjective Notes: Graff Warning and Conditional Voluntary Healthcare Proxy: No Guardianship: No Medical Problems Affecting Mental Status: No Narrative: 61 yo male, history of depression, alcohol use disorder with GIB to ER with police and EMS. Pt reports an argument with a neighbor due to feeding neighbor's dog. In protective custody pt made statements regarding his safety. He reports mutual threats. Denies current sx of depression, reports 2 25 oz beers, referring to them as Natty Daddies every third day and cannabis 1/4oz per week. Denies need for detox. Reports 15 years of sobriety beginning at age 27 with hx of AA. Pt identifies main issue as homelessness, inability to get a job due to a knee surgery that had complications, and loss of license due to alcohol use for ~ 4 years and difficulty living due to a lack of income. 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 week Sober for 15 years from age 27 Hx of AA involvement Trauma History: Medical Diagnostics Vital Signs (24Hr): Vital Signs - 24 hr 09/21/21 20:57 09/21/21 21:45 09/22/21 07:04 Temperature 96.8 F 98.9 F 99.7 F Pulse Rate 61 70 65 Respiratory Rate 15 18 Blood Pressure 136/95 H 124/81 129/94 H Pulse Oximetry 98 96 97 BMI result Body Mass Index 22.1 Labs Results: 09/20/21 20:05 09/22/21 08:21 Labs: Laboratory Results - last 48 hr 09/20/21 09/20/21 09/20/21 20:05 20:05 20:05 WBC 3.4 L RBC 3.96 L Hgb 12.8 L Hct 38.1 L MCV 96.2 MCH 32.3 MCHC 33.6 RDW 14.6 Plt Count 173 MPV 9.3 L Immature Gran % (Auto) 0.6 H Neut % (Auto) 53.6 Lymph % (Auto) 34.6 [place] % (Auto) 8.2 Eos % (Auto) 1.5 Baso % (Auto) 1.5 Lymph # (Auto) 1.2 [place] # (Auto) 0.3 Eos # (Auto) 0.1 Baso # (Auto) 0.1 Abs Immat Gran (auto) 0.02 Absolute Neuts (auto) 1.8 L Absolute Nucleated RBC 0.000 Nucleated RBC % (auto) 0.0 Sodium 143 Potassium 4.4 Chloride 110 H Carbon Dioxide 23 Anion Gap 14 BUN 14 Creatinine 0.80 Estim Creat Clear Calc 92.1 Estimated GFR > 60 Random Glucose 91 Fasting Glucose Estimat Average Glucose Hemoglobin A1c % Calcium 8.9 Total Bilirubin 0.8 AST 62 H ALT 29 Alkaline Phosphatase 67 D Total Protein 6.3 L Albumin 3.6 Triglycerides Cholesterol LDL Cholesterol, Calc HDL Cholesterol Vitamin B12 Folate TSH Free T4 Urine Opiates Screen Urine Fentanyl Screen Ur Barbiturates Screen Ur Phencyclidine Scrn Ur Amphetamines Screen U Benzodiazepines Scrn Urine Cocaine Screen U Marijuana (THC) Screen Ethyl Alcohol COVID-19 ([facility]) Negative COVID-19 Clin Com See Note 09/20/21 09/20/21 09/22/21 20:05 20:45 08:21 WBC RBC Hgb Hct MCV MCH MCHC RDW Plt Count MPV Immature Gran % (Auto) Neut % (Auto) Lymph % (Auto) [place] % (Auto) Eos % (Auto) Baso % (Auto) Lymph # (Auto) [place] # (Auto) Eos # (Auto) Baso # (Auto) Abs Immat Gran (auto) Absolute Neuts (auto) Absolute Nucleated RBC Nucleated RBC % (auto) Sodium 136 Potassium 5.2 H Chloride 101 Carbon Dioxide 26 Anion Gap 14 BUN 15 Creatinine 0.81 Estim Creat Clear Calc 90.9 Estimated GFR > 60 Random Glucose Fasting Glucose 89 Estimat Average Glucose Hemoglobin A1c % Calcium 10.2 D Total Bilirubin 2.6 H AST 43 H ALT 30 Alkaline Phosphatase 80 Total Protein 7.3 Albumin 4.1 Triglycerides 84 Cholesterol 162 LDL Cholesterol, Calc 53 HDL Cholesterol 93 Vitamin B12 Folate TSH 1.20 Free T4 0.99 Urine Opiates Screen Not Detected Urine Fentanyl Screen Not Detected Ur Barbiturates Screen Not Detected Ur Phencyclidine Scrn Not Detected Ur Amphetamines Screen Not Detected U Benzodiazepines Scrn Not Detected Urine Cocaine Screen Not Detected U Marijuana (THC) Screen POSITIVE H Ethyl Alcohol 219 COVID-19 ([facility]) COVID-19 [employer] 09/22/21 09/22/21 08:21 08:21 WBC RBC Hgb Hct MCV MCH MCHC RDW Plt Count MPV Immature Gran % (Auto) Neut % (Auto) Lymph % (Auto) [place] % (Auto) Eos % (Auto) Baso % (Auto) Lymph # (Auto) [place] # (Auto) Eos # (Auto) Baso # (Auto) Abs Immat Gran (auto) Absolute Neuts (auto) Absolute Nucleated RBC Nucleated RBC % (auto) Sodium Potassium Chloride Carbon Dioxide Anion Gap BUN Creatinine Estim Creat Clear Calc Estimated GFR Random Glucose Fasting Glucose Estimat Average Glucose 94 Hemoglobin A1c % 4.9 Calcium Total Bilirubin AST ALT Alkaline Phosphatase Total Protein Albumin Triglycerides Cholesterol LDL Cholesterol, Calc HDL Cholesterol Vitamin B12 193 L Folate 7.8 TSH Free T4 Urine Opiates Screen Urine Fentanyl Screen Ur Barbiturates Screen Ur Phencyclidine Scrn Ur Amphetamines Screen U Benzodiazepines Scrn Urine Cocaine Screen U Marijuana (THC) Screen Ethyl Alcohol COVID-19 ([facility]) COVID-19 [employer] Meds/Allergies Meds Home Medications Medication Instructions Recorded Confirmed Type gabapentin 600 mg tablet 600 mg PO TID 03/20/20 03/20/20 History Allergies Allergies Allergy/AdvReac Type Severity Reaction Status Date / Time No Known Allergies Allergy Verified 03/19/20 19:39 [No Known Allergies*] Mental Status Exam Mental Status Exam Patient Appearance: Appropriate Patient Orientation: Person, Place, Time and Situation Level of Consciousness: Alert Patient Behavior: Appropriate, Talkative, Cooperative and Good Eye Contact Mood Description: Anxious Affect Description: Anxious Patient Cognition Impaired: No Ability to Follow Directions: Good Speech Pattern: Spontaneous Speech Memory Description: Episodic Impaired Hallucinations: None Delusions: Not Present Perceptual Disturbances: Derealization Thought Process: Distracted and Goal Oriented Thought Content: positive for [place], positive for Circumstantial, positive for Goal Oriented and positive for Suicidal Ideation (denies) Depressive Symptoms: Increased Anxiety, Thoughts of /Suicide (denies) and Back Pain Judgement: Fair Assessment & Plan Assessment & Plan (1) Depression: Status: Acute Code(s): F32.A - Depression, unspecified (2) Alcohol use disorder, severe, dependence: Status: Acute Code(s): F10.20 - Alcohol dependence, uncomplicated Plan 61 yo male, hx of depression, alcohol use disorder s/p altercation with a neighbor where he verbalized SI while in protective custody. Pt identifies several stressors-homelessness, lack of work and income, and chronic pain due to a failed knee surgery. Plan: Ativan prn withdrawal MVI, Thiamine, B12 supplementation Pt asks for no antidepressant Rx Ferrous Sulfate 324 mg a.m. Iron Profile r/o anemia of chronic disease. Repeat K in the a.m. Collateral contacts Note: [employer] have made contact this afternoon with Carmel Finnegan RN, Director of Behavioral Health Nursing. Pt has several people who what to press charges for verbal threats made-will need to further explore and identify these issues and appropriate interventions. Patient educated on: therapeutic strategies Informed Consent: understands and further education needed Reason for continued inpatient stay Substantial Risk for: harm to self, harm to others, inability to function, rapid decompensation and med/psych decompensation
[2021-09-22 18:00] VITALS: BP 144/99; PULSE 75; TEMP 37.1; O2SAT 99
[2021-09-22] MEDS: hydrOXYzine HCL 25 MG TABLET PO (20:01)
[2021-09-23 06:00] VITALS: BP 142/88; PULSE 75; TEMP 37; O2SAT 99
[2021-09-23] MEDS: Multivitamin TABLET 1 TAB PO (08:15)
[2021-09-23] MEDS: Thiamine HCL 100 MG TABLET PO (08:15)
[2021-09-23] MEDS: Ferrous Sulfate 324 MG TABLET.DR PO (08:15)
[2021-09-23] MEDS: Cyanocobalamin (Vitamin B-12) 100 MCG TABLET PO (08:15)
[2021-09-23 09:06] LABS: Iron 35 mcg/dL (45-160); Percent Iron Saturation 11 % (15-50); Potassium 4.4 mmol/L (3.3-5.1); Total Iron Binding Capacity 328 mcg/dL (228-428); Unsaturated Iron Binding 293 ug/dL
--- NOTE | 2021-09-23 10:00 | ECG_ITS ---
Test Reason : detox, hypokalemia Blood Pressure : / mmHG Vent. Rate : 066 BPM Atrial Rate : 066 BPM P-R Int : 168 ms QRS Dur : 088 ms QT Int : 374 ms P-R-T Axes : 071 -14 051 degrees QTc Int : 392 ms Normal sinus rhythm with sinus arrhythmia Normal ECG When compared with ECG of 18-OCT-2016 15:28, No significant change was found Referred By: Arianne Hurst Electronically Signed By:AYAN ANDREWS MD
[2021-09-23 14:18] VITALS: BMI 20.2
[2021-09-23] MEDS: Gabapentin 600 MG TABLET PO ×2 (15:08→20:50)
--- NOTE | 2021-09-23 15:08 | HO.PSYCHPN ---
Subjective Subjective Date of Service: 09/23/21 Reason For Visit: SI Interim History: pt found lying in bed. calm, cooperative, pleasant. c/o knee pain, perseverative on his knee surgical history, pain, sequelae. informed gabapentin has been ordered and should come to him momentarily. perseverative re knee surgery history, botched surgeries. also asks for naproxen to be added to his regimen, saying that when he takes it with gabapentin, his pain is much decreased. perseverative re knee pain, associated paresthesias in his lower right extremity. discusses his difficulty ambulating, suggests PT consult for recs for mgmt/aids. pt in agreement with plan. also perseverative regarding his knee pain and [id number] of damage to the knee and surgical corrections history. Mental Status Exam Mental Status Exam Narrative: adequately dressed, appears rather disheveled. no PMA/PMR. cooperative with interview. speech increased in amount, decr latency, nml rate, prosody somewhat reduced. thoughts perseverative (see above). no delusions or paranoia evident. affect flexible, normo-intense, non-labible. mood ok. denies SI/HI/AVH. Diagnostics Vital Signs (24Hr): Vital Signs - 24 hr 09/22/21 18:00 09/23/21 06:00 Temperature 98.7 F 98.6 F Pulse Rate 75 75 Blood Pressure 144/99 H 142/88 H Pulse Oximetry 99 99 BMI result Body Mass Index 20.2 Labs Results: 09/20/21 20:05 09/23/21 08:17 Labs: Laboratory Results - last 48 hr 09/22/21 09/22/21 09/22/21 08:21 08:21 08:21 Sodium 136 Potassium 5.2 H Chloride 101 Carbon Dioxide 26 Anion Gap 14 BUN 15 Creatinine 0.81 Estim Creat Clear Calc 90.9 Estimated GFR > 60 Fasting Glucose 89 Estimat Average Glucose 94 Hemoglobin A1c % 4.9 Calcium 10.2 D Iron TIBC % Saturation Unsat Iron Binding Total Bilirubin 2.6 H AST 43 H ALT 30 Alkaline Phosphatase 80 Total Protein 7.3 Albumin 4.1 Triglycerides 84 Cholesterol 162 LDL Cholesterol, Calc 53 HDL Cholesterol 93 Vitamin B12 193 L Folate 7.8 TSH 1.20 Free T4 0.99 09/23/21 08:17 Sodium Potassium 4.4 Chloride Carbon Dioxide Anion Gap BUN Creatinine Estim Creat Clear Calc Estimated GFR Fasting Glucose Estimat Average Glucose Hemoglobin A1c % Calcium Iron 35 L TIBC 328 % Saturation 11 L Unsat Iron Binding 293 Total Bilirubin AST ALT Alkaline Phosphatase Total Protein Albumin Triglycerides Cholesterol LDL Cholesterol, Calc HDL Cholesterol Vitamin B12 Folate TSH Free T4 Medications Medications Current Medications Acetaminophen (Acetaminophen 325 Mg Tablet) 650 mg PO Q6H PRN PRN Reason: Headache/Pain Mild Scale (1-3) Last Admin: 09/22/21 20:00 Dose: 650 mg Documented by: Al Hydroxide/Mg Hydroxide (Magnesium Hydrox/Alum Hydrox 30 Ml Oral.Susp) 30 ml PO Q6H PRN PRN Reason: Heartburn/Nausea Cyanocobalamin (Cyanocobalamin (Vitamin B-12) 100 Mcg Tablet) 100 mcg PO DAILY [facility] Last Admin: 09/23/21 08:15 Dose: 100 mcg Documented by: Ferrous Sulfate (Ferrous Sulfate 324 Mg Tablet.) 324 mg PO DAILY [facility] Last Admin: 09/23/21 08:15 Dose: 324 mg Documented by: Gabapentin (Gabapentin 600 Mg Tablet) 600 mg PO TID [facility] Hydroxyzine HCl (Hydroxyzine Hcl 25 Mg Tablet) 25 mg PO BEDTIME PRN PRN Reason: Anxiety Last Admin: 09/22/21 20:01 Dose: 25 mg Documented by: Lorazepam (Lorazepam 1 Mg Tablet) 1 mg PO Q6H PRN PRN Reason: alcohol withdrawal sx Magnesium Hydroxide (Milk Of Magnesia 30 Ml Oral.Susp) 30 ml PO DAILY PRN PRN Reason: Constipation Multivitamins/Vitamin C (Multivitamin Tablet) 1 tab PO DAILY [facility] Last Admin: 09/23/21 08:15 Dose: 1 tab Documented by: Naproxen (Naproxen 250 Mg Tablet) 250 mg PO TID [facility] Nicotine Polacrilex (Nicotine Polacrilex 2 Mg Gum) 4 mg BUCCAL Q2H PRN PRN Reason: Nicotine Cravings Thiamine HCl (Thiamine Hcl 100 Mg Tablet) 100 mg PO DAILY [facility] Last Admin: 09/23/21 08:15 Dose: 100 mg Documented by: Trazodone HCl (Trazodone Hcl 50 Mg Tablet) 50 mg PO BEDTIME PRN PRN Reason: Insomnia Allergies Allergies Allergy/AdvReac Type Severity Reaction Status Date / Time No Known Allergies Allergy Verified 03/19/20 19:39 [No Known Allergies*] Assessment & Plan Assessment & Plan (1) Depression: Status: Acute Code(s): F32.A - Depression, unspecified (2) Alcohol use disorder, severe, dependence: Status: Acute Code(s): F10.20 - Alcohol dependence, uncomplicated Plan 61 yo male, hx of depression, alcohol use disorder s/p altercation with a neighbor where he verbalized SI while in protective custody. Pt identifies several stressors-homelessness, lack of work and income, and chronic pain due to a failed knee surgery. Plan: Ativan prn withdrawal MVI, Thiamine, B12 supplementation Pt asks for no antidepressant Rx Ferrous Sulfate 324 mg a.m. Iron Profile r/o anemia of chronic disease. K WNL 09/23. gabapentin 600 TID restarted 09/23; naprosyn 250 TID added 09/23 as well, at pt request (he uses this outpt). PT traceal ordered for rec for help with ambulation. Collateral contacts Note: [employer] have made contact this afternoon with Carmel Finnegan RN, Director of Behavioral Health Nursing. Pt has several people who what to press charges for verbal threats made-will need to further explore and identify these issues and appropriate interventions. I spent __25____ minutes with the patient and/or on the patient floor today, greater than?50% of which was spent counseling/coordinating care. Reason for contiued inpatient stay Substantial Risk for: harm to self, harm to others, inability to function and rapid decompensation
[2021-09-23] MEDS: NaPROXEN 250 MG TABLET PO ×2 (15:15→20:50)
[2021-09-23 18:00] VITALS: BP 115/86; PULSE 78; RESP 18; TEMP 36.6
[2021-09-24] MEDS: Multivitamin TABLET 1 TAB PO (08:06)
[2021-09-24] MEDS: Ferrous Sulfate 324 MG TABLET.DR PO (08:06)
[2021-09-24] MEDS: Gabapentin 600 MG TABLET PO ×2 (08:06→14:10)
[2021-09-24] MEDS: NaPROXEN 250 MG TABLET PO ×2 (08:06→14:09)
[2021-09-24] MEDS: Cyanocobalamin (Vitamin B-12) 100 MCG TABLET PO (08:06)
[2021-09-24] MEDS: Thiamine HCL 100 MG TABLET PO (08:06)
[2021-09-24 08:09] VITALS: BP 134/92; PULSE 80; RESP 18; TEMP 36.9; O2SAT 97
[2021-09-24 09:12] VITALS: BP 134/92; PULSE 80; O2SAT 97
--- NOTE | 2021-09-24 17:14 | P.DS_ITS ---
DS: Providers Provider Date of Service: 09/24/21 Date of admission: 09/21/21 21:49 Date of discharge: 09/24/21 Primary care physician: Raciel Chua MD Admitting clinician: Arianne Hurst Attending physician on admission: Shai Elena Attending physician on discharge: Shai Elena Discharging clinician: Arianne Hurst DS: Diagnosis Discharge Diagnosis (1) Depression: Status: Resolved (2) Alcohol use disorder, severe, dependence: Status: Acute DS: Medications Discharge Medications Home Medications: Home Medications Medication Instructions Recorded Confirmed gabapentin 600 mg tablet 600 mg PO TID 03/20/20 09/23/21 Previous Rx's Medication Instructions Recorded dibucaine 1 % topical ointment 1 appl TOPICAL TID PRN #1 g 03/26/20 polyethylene glycol 3350 17 gram 17 g PO DAILY #20 ea 03/26/20 oral powder packet aluminum-magnesium hydroxide 200 30 ml PO Q6H PRN #0 ml 09/24/21 mg-200 mg/5 mL oral suspension (MAG-AL) cyanocobalamin (vitamin B-12) 100 100 mcg PO DAILY #30 tab 09/24/21 mcg tablet (Vitamin B-12) gabapentin 600 mg tablet 600 mg PO TID #0 tab 09/24/21 magnesium hydroxide 400 mg/5 mL 30 ml PO DAILY PRN #0 ml 09/24/21 oral suspension (Milk of Magnesia) multivitamin (Daily-Parul) 1 tab PO DAILY #30 tab 09/24/21 thiamine mononitrate (vit B1) 100 100 mg PO DAILY #30 tab 09/24/21 mg tablet Mental Status Exam Mental Status Exam Narrative: adequately dressed, appears rather disheveled. no PMA/PMR. cooperative with interview. speech increased in amount, decr latency, nml rate, prosody somewhat reduced. thoughts perseverative (see above). no delusions or paranoia evident. affect flexible, normo-intense, non-labible. mood ok. denies SI/HI/AVH. Data Data Completed and Pending Completed studies during hospitalization [Text1]: 09/20/21 09/20/21 09/20/21 20:05 20:05 20:05 WBC 3.4 L RBC 3.96 L Hgb 12.8 L Hct 38.1 L MCV 96.2 MCH 32.3 MCHC 33.6 RDW 14.6 Plt Count 173 MPV 9.3 L Immature Gran % (Auto) 0.6 H Neut % (Auto) 53.6 Lymph % (Auto) 34.6 [place] % (Auto) 8.2 Eos % (Auto) 1.5 Baso % (Auto) 1.5 Lymph # (Auto) 1.2 [place] # (Auto) 0.3 Eos # (Auto) 0.1 Baso # (Auto) 0.1 Abs Immat Gran (auto) 0.02 Absolute Neuts (auto) 1.8 L Absolute Nucleated RBC 0.000 Nucleated RBC % (auto) 0.0 Sodium 143 Potassium 4.4 Chloride 110 H Carbon Dioxide 23 Anion Gap 14 BUN 14 Creatinine 0.80 Estim Creat Clear Calc 92.1 Estimated GFR > 60 Random Glucose 91 Fasting Glucose Estimat Average Glucose Hemoglobin A1c % Calcium 8.9 Iron TIBC % Saturation Unsat Iron Binding Total Bilirubin 0.8 AST 62 H ALT 29 Alkaline Phosphatase 67 D Total Protein 6.3 L Albumin 3.6 Triglycerides Cholesterol LDL Cholesterol, Calc HDL Cholesterol Vitamin B12 Folate TSH Free T4 Urine Opiates Screen Urine Fentanyl Screen Ur Barbiturates Screen Ur Phencyclidine Scrn Ur Amphetamines Screen U Benzodiazepines Scrn Urine Cocaine Screen U Marijuana (THC) Screen Ethyl Alcohol COVID-19 ([facility]) Negative COVID-19 Clin Com See Note 09/20/21 09/20/21 09/22/21 20:05 20:45 08:21 WBC RBC Hgb Hct MCV MCH MCHC RDW Plt Count MPV Immature Gran % (Auto) Neut % (Auto) Lymph % (Auto) [place] % (Auto) Eos % (Auto) Baso % (Auto) Lymph # (Auto) [place] # (Auto) Eos # (Auto) Baso # (Auto) Abs Immat Gran (auto) Absolute Neuts (auto) Absolute Nucleated RBC Nucleated RBC % (auto) Sodium 136 Potassium 5.2 H Chloride 101 Carbon Dioxide 26 Anion Gap 14 BUN 15 Creatinine 0.81 Estim Creat Clear Calc 90.9 Estimated GFR > 60 Random Glucose Fasting Glucose 89 Estimat Average Glucose Hemoglobin A1c % Calcium 10.2 D Iron TIBC % Saturation Unsat Iron Binding Total Bilirubin 2.6 H AST 43 H ALT 30 Alkaline Phosphatase 80 Total Protein 7.3 Albumin 4.1 Triglycerides 84 Cholesterol 162 LDL Cholesterol, Calc 53 HDL Cholesterol 93 Vitamin B12 Folate TSH 1.20 Free T4 0.99 Urine Opiates Screen Not Detected Urine Fentanyl Screen Not Detected Ur Barbiturates Screen Not Detected Ur Phencyclidine Scrn Not Detected Ur Amphetamines Screen Not Detected U Benzodiazepines Scrn Not Detected Urine Cocaine Screen Not Detected U Marijuana (THC) Screen POSITIVE H Ethyl Alcohol 219 COVID-19 ([facility]) COVID-19 Clin Com 09/22/21 09/22/21 09/23/21 08:21 08:21 08:17 WBC RBC Hgb Hct MCV MCH MCHC RDW Plt Count MPV Immature Gran % (Auto) Neut % (Auto) Lymph % (Auto) [place] % (Auto) Eos % (Auto) Baso % (Auto) Lymph # (Auto) [place] # (Auto) Eos # (Auto) Baso # (Auto) Abs Immat Gran (auto) Absolute Neuts (auto) Absolute Nucleated RBC Nucleated RBC % (auto) Sodium Potassium 4.4 Chloride Carbon Dioxide Anion Gap BUN Creatinine Estim Creat Clear Calc Estimated GFR Random Glucose Fasting Glucose Estimat Average Glucose 94 Hemoglobin A1c % 4.9 Calcium Iron 35 L TIBC 328 % Saturation 11 L Unsat Iron Binding 293 Total Bilirubin AST ALT Alkaline Phosphatase Total Protein Albumin Triglycerides Cholesterol LDL Cholesterol, Calc HDL Cholesterol Vitamin B12 193 L Folate 7.8 TSH Free T4 Urine Opiates Screen Urine Fentanyl Screen Ur Barbiturates Screen Ur Phencyclidine Scrn Ur Amphetamines Screen U Benzodiazepines Scrn Urine Cocaine Screen U Marijuana (THC) Screen Ethyl Alcohol COVID-19 ([facility]) COVID-19 Clin Com DS: Summary Hospital Course Hospital Course: Admission to adult psychiatry for exacerbation of alcohol use, situational crisis and resulting suicidal ideation. Gabapentin was continued. Yovanny stabilized, declined further interventions and medications during the hospitalization and was discharged. Time spent discussing smoking cessation with patient: 3 to 10 minutes Status at Discharge Functional status at discharge: independent ambulation Overall status at discharge: patient is progressing back to baseline Time Spent with Patient Time attestation: Total time spent providing and/or coordinating discharge services: Time spent: Greater than 30 minutes Discharge Plan Discharge Patient Disposition: Xfer Other Discharge Diagnosis: Adjustment reaction with mixed features of emotion and conduct Alcohol Use Disorder, Dependence, Severe Anemia Hx of rectal varices, hemorrhoids Hx of GI Bleeding Referrals: Clinical and Support Options [Other] - Tomorrow (Referral for CSP worker) Raciel Chua MD [Primary Care Provider] - (Please follow up. ) Discharge Medications: New multivitamin [Daily-Parul] Tablet 1 tab PO DAILY Qty: 30 1RF gabapentin 600 mg Tablet 600 mg PO TID Qty: 0 0RF cyanocobalamin (vitamin B-12) [Vitamin B-12] 100 mcg Tablet 100 mcg PO DAILY Qty: 30 1RF magnesium hydroxide [Milk of Magnesia] 400 mg/5 mL Suspension 30 ml PO DAILY PRN (Reason: Constipation) Qty: 0 0RF MAG-AL 200-200 mg/5 mL Suspension 30 ml PO Q6H PRN (Reason: Heartburn/Nausea) Qty: 0 0RF thiamine mononitrate (vit B1) 100 mg Tablet 100 mg PO DAILY Qty: 30 1RF Continued gabapentin 600 mg Tablet 600 mg PO TID polyethylene glycol 3350 17 gram Powder In Packet 17 g PO DAILY Qty: 20 0RF dibucaine 1 % Ointment 1 appl topical TID PRN (Reason: Hemorrhoids) Qty: 1 0RF Protocol: Apply to: Apply to: perirectal area Discharge Orders: Discharge Order (Routine); Ordered 09/24/21 Ordered By: Arianne Hurst Diet: advance to usual diet Activity on Discharge: As tolerated Stand Alone Forms: Patient Portal Discharge page, Community Support Care Plan Goals: Mood stabilization Work on sobriety Health Concerns: Adjustment reaction with mixed emotions and conduct Alcohol Use Disorder Hx of anemia, hemorrhoids, rectal varices Plan of Treatment: Take medications as directed You have declined treatment referrals-follow up with your primary care physician Call/return as needed Crisis Team if needed [phone] Assessment: non-psychotic, non-suicidal Patient Instructions: Depression (ED) Discharge Date/Time: 09/24/21 16:00
== END 2021-09-24 16:00 | disposition other institution (70) | DRG 754 ==
LOC: HO.ED 21:48 → HO.PM5 09-21 22:09
PROVIDERS: Admitting Provider Psychiatry & Neurology Psychiatry; Emergency Provider Emergency Medicine Emergency Medical Services; PCP Internal Medicine; Visit Provider Clinical Nurse Specialist Psychiatric/Mental Health, Adult
DX: F32.A Depression, unspecified (principal); R45.851 Suicidal ideations; D64.9 Anemia, unspecified; G89.29 Other chronic pain; Z59.2 Discord with neighbors, lodgers and landlord; Z56.89 Other problems related to employment; F10.20 Alcohol dependence, uncomplicated; Z20.822 Contact with and (suspected) exposure to COVID-19; Z87.891 Personal history of nicotine dependence; Z79.899 Other long term (current) drug therapy
CPT/HCPCS: 36415; 80053; 80061; 80307; 82077; 82607; 82746; 83036; 83540; 84132; 84439; 84443; 85025; 87635; 93005; 97161; 99285